=== PATIENT | female | born 1940 | race Two or more races ===

== ENCOUNTER 2021-09-02 18:10 | Inpatient (IN) | payer MEDICARE, MEDICAID ==
[~2021-09-02] VITALS: Ht 154.9 cm; Wt 56.1 kg
[2021-09-02] MEDS ORDERED: SODIUM CHLORIDE 0.9% 1,000 ML IV ONE (19:00)
[2021-09-02 20:24] LABS: Albumin 2.8 g/dL (3.4-5.0); Calcium 8.3 mg/dL (8.5-10.1); Potassium 3.5 mmol/L (3.5-5.1)
[2021-09-02 20:26] LABS: INR 1.09 (0.9-1.15); Partial Thromboplastin Time 32.7 sec (23.6-33.0)
[2021-09-02 20:28] LABS: BUN/Creatinine Ratio 12.7; Bilirubin, Total 0.5 mg/dL (0.2-1.0); Total Protein 7.2 g/dL (6.4-8.2)
[2021-09-02] MEDS ORDERED: MORPHINE SULFATE INJECTION 2 MG/ML SYRG IV ONE (20:30)
[2021-09-02] MEDS ORDERED: ONDANSETRON HCL 4 MG/2 ML VIAL IV ONE (21:45)
[2021-09-02] MEDS ORDERED: OMNIPAQUE ORAL SOLN 500ml 12mg/ml PO ONE (21:49)
[2021-09-02 22:19] LABS: Basophils # (auto) 0 10 ^3/uL (0-0.2); Basophils % (auto) 0.3 % (0.0-2.0); Eosinophils # (auto) 0 10 ^3/uL (0-0.8); Eosinophils % (auto) 0.1 % (0.0-7.0); Hematocrit 27.1 % (36.0-46.0); Hemoglobin 8.8 g/dL (12.2-16.2); Lymphocytes # (auto) 1.5 10 ^3/uL (0.4-5.4); Lymphocytes % (auto) 11.6 % (10.0-50.0); Mean Corpuscular Hemoglobin 27.2 pg (28.0-32.0); Mean Corpuscular Hgb Conc. 32.4 g/dL (32.0-36.0); Mean Corpuscular Volume 84.1 fL (80.0-100.0); Monocytes # (auto) 0.6 10 ^3/uL (0-1.3); Monocytes % (auto) 4.8 % (0.0-12.0); Neutrophils # (auto) 10.9 10 ^3/uL (1.6-8.6); Neutrophils % (auto) 83.2 % (37.0-80.0); Nucleated Red Blood Cells % 0.1 %; Red Blood Cells 3.22 10^6/uL (4.0-5.20); Red Cell Distribution Width 17.6 % (11.8-14.3); White Blood Cell 13.2 10^3/uL (4.4-10.8)
[2021-09-03] VITALS (7 sets, daily range): BP systolic 123–137; BP diastolic 44–80
[2021-09-03] MEDS ORDERED: METOCLOPRAMIDE HCL 5MG/ml INJ 2ml VIAL IV ONE (02:15)
[2021-09-03] MEDS ORDERED: ATROPINE SULF 1 MG/10ml SYR IV ONE (02:30)
[2021-09-03] MEDS ORDERED: ETOMIDATE (2MG/ML) 20ML VIAL IV ONE (02:40)
[2021-09-03] MEDS ORDERED: SUCCINYLCHOLINE CHLORIDE 20 MG/ML 10ML VIAL IV ONE (02:40)
[2021-09-03] MEDS ORDERED: PROPOFOL 100 ML IV ONE (02:41)
[2021-09-03] MEDS ORDERED: NITROGLYCERIN 0.4 MG SL TAB SL PRN (03:15)
[2021-09-03] MEDS ORDERED: MORPHINE SULFATE 4 MG/ML SYR/VIAL IV PRN (03:15)
[2021-09-03] MEDS ORDERED: MORPHINE SULFATE INJECTION 2 MG/ML SYRG IV PRN (03:15)
[2021-09-03] MEDS ORDERED: DEXTROSE (50%) 50ML SYRG IV PRN (03:15)
[2021-09-03] MEDS: cefTRIAXone 1GM/50ML D5W 50 ML IV SCH ×2 (04:07→07:55)
[2021-09-03 04:16] LABS: Urine Bacteria NONE SEEN /hpf (None Seen); Urine Blood 3+ /uL (Negative); Urine WBC 267 /hpf (0 - 5)
[2021-09-03 04:22] LABS: Urine Specific Gravity 1.032 (1.001-1.035)
[2021-09-03 04:24] LABS: Hematocrit 27.9 % (36.0-46.0); Hemoglobin 8.8 g/dL (12.2-16.2)
[2021-09-03] MEDS: ONDANSETRON HCL 4 MG/2 ML VIAL IV PRN (06:26)
[2021-09-03] MEDS: DOPamine 1600MCG/ML D5W 250 ML IV SCH ×2 (07:54→22:18)
[2021-09-03] MEDS: ACCU-CHEK COMFORT CURVE STRIP VI SCH ×5 (08:12→22:17)
[2021-09-03] MEDS: InsuLIN REG 1unit/0.01ml Soln (100units/ml) SC SCH ×3 (08:18→22:17)
[2021-09-03] MEDS: PANTOPRAZOLE 40 MG TAB PO SCH (13:58)
[2021-09-03] MEDS ORDERED: LIDOCAINE 2%HCL (LOCAL ANESTH.) INJ 20ML MDV ONE (14:45)
[2021-09-03] MEDS ORDERED: MIDAZOLAM HCL 2MG/2ML 2ml VIAL (1mg/ml) ONE (14:45)
[2021-09-03] MEDS ORDERED: fentaNYL CITRATE 100 MCG/2 ML VL ONE (14:45)
[2021-09-03] MEDS ORDERED: IODIXANOL 320MG/ML 100ML BTL IV ONE (14:45)
[2021-09-03] MEDS ORDERED: IPRAAER6 PO (14:55)
[2021-09-03] MEDS ORDERED: ATOR40TA52 PO (14:55)
[2021-09-03] MEDS ORDERED: LINA5TAB PO (14:55)
[2021-09-03] MEDS ORDERED: FAMO40TA7 PO (14:55)
[2021-09-03] MEDS ORDERED: ISOS1TAB28 PO (14:55)
[2021-09-03] MEDS ORDERED: METH-928 PO (14:58)
[2021-09-03] MEDS ORDERED: diphenhdrAMINE HCL 50 MG/1 ML VL ONE (15:12)
[2021-09-03 20:24] LABS: Hematocrit 26.5 % (36.0-46.0); Hemoglobin 8.7 g/dL (12.2-16.2)
[2021-09-04] VITALS (8 sets, daily range): BP systolic 93–119; BP diastolic 33–67
[2021-09-04 05:27] LABS: Albumin 2.4 g/dL (3.4-5.0); Calcium 8.1 mg/dL (8.5-10.1); Potassium 3.5 mmol/L (3.5-5.1)
[2021-09-04 05:28] LABS: Basophils # (auto) 0 10 ^3/uL (0-0.2); Basophils % (auto) 0.2 % (0.0-2.0); Eosinophils # (auto) 0 10 ^3/uL (0-0.8); Hematocrit 25.5 % (36.0-46.0); Hemoglobin 8.4 g/dL (12.2-16.2); Lymphocytes # (auto) 1.7 10 ^3/uL (0.4-5.4); Lymphocytes % (auto) 9.5 % (10.0-50.0); Mean Corpuscular Hemoglobin 27.8 pg (28.0-32.0); Mean Corpuscular Hgb Conc. 32.9 g/dL (32.0-36.0); Mean Corpuscular Volume 84.5 fL (80.0-100.0); Monocytes # (auto) 1.3 10 ^3/uL (0-1.3); Neutrophils # (auto) 14.9 10 ^3/uL (1.6-8.6); Neutrophils % (auto) 83.3 % (37.0-80.0); Red Blood Cells 3.02 10^6/uL (4.0-5.20); Red Cell Distribution Width 17.7 % (11.8-14.3); White Blood Cell 17.9 10^3/uL (4.4-10.8)
[2021-09-04 05:30] LABS: BUN/Creatinine Ratio 11.6; Bilirubin, Total 0.4 mg/dL (0.2-1.0); Total Protein 6.4 g/dL (6.4-8.2)
[2021-09-04] MEDS: ACCU-CHEK COMFORT CURVE STRIP VI SCH ×4 (06:48→22:06)
[2021-09-04] MEDS: InsuLIN REG 1unit/0.01ml Soln (100units/ml) SC SCH ×4 (06:53→22:13)
[2021-09-04] MEDS: cefTRIAXone 1GM/50ML D5W 50 ML IV SCH (09:35)
[2021-09-04] MEDS: ONDANSETRON HCL 4 MG/2 ML VIAL IV PRN (10:18)
[2021-09-04] MEDS: PANTOPRAZOLE 40 MG TAB PO SCH (10:21)
[2021-09-04] MEDS ORDERED: LORazepam 2MG/ML-1ML VIAL IV PRN (12:45)
[2021-09-04] MEDS ORDERED: LORazepam 2MG/ML-1ML VIAL ONE (12:47)
[2021-09-04] MEDS: AMPICILLIN & SULBACTAM SODIUM 3 GM in SODIUM CHL 0.9% 100 ML IV SCH (22:06)
[2021-09-05] MEDS: DOPamine 1600MCG/ML D5W 250 ML IV SCH (02:17)
[2021-09-05 06:55] LABS: Anion Gap 10 (5-15); Calcium 7.6 mg/dL (8.5-10.1); Carbon Dioxide 22 mmol/L (21-32); Chloride 107 mmol/L (98-107); Glucose 120 mg/dL (74-106); Potassium 3.6 mmol/L (3.5-5.1); Sodium 139 mmol/L (136-145)
[2021-09-05 06:58] LABS: Basophils # (auto) 0.1 10 ^3/uL (0-0.2); Basophils % (auto) 0.5 % (0.0-2.0); Eosinophils # (auto) 0 10 ^3/uL (0-0.8); Eosinophils % (auto) 0.3 % (0.0-7.0); Hematocrit 28.3 % (36.0-46.0); Hemoglobin 8.7 g/dL (12.2-16.2); Lymphocytes # (auto) 2.8 10 ^3/uL (0.4-5.4); Lymphocytes % (auto) 18.2 % (10.0-50.0); Mean Corpuscular Hemoglobin 26.1 pg (28.0-32.0); Mean Corpuscular Hgb Conc. 30.7 g/dL (32.0-36.0); Monocytes # (auto) 1.2 10 ^3/uL (0-1.3); Monocytes % (auto) 7.5 % (0.0-12.0); Neutrophils # (auto) 11.4 10 ^3/uL (1.6-8.6); Neutrophils % (auto) 73.5 % (37.0-80.0); Red Blood Cells 3.33 10^6/uL (4.0-5.20); White Blood Cell 15.5 10^3/uL (4.4-10.8)
[2021-09-05] MEDS: InsuLIN REG 1unit/0.01ml Soln (100units/ml) SC SCH ×4 (07:00→22:36)
[2021-09-05] MEDS: ACCU-CHEK COMFORT CURVE STRIP VI SCH ×4 (07:00→22:27)
[2021-09-05 07:01] LABS: BUN/Creatinine Ratio 10.8; Blood Urea Nitrogen 33 mg/dL (7-18); GFR African American 19 mL/min; GFR Non-African American 16 mL/min
[2021-09-05 09:00] VITALS: BP 119/51
[2021-09-05] MEDS: PANTOPRAZOLE 40 MG TAB PO SCH (10:59)
[2021-09-05] MEDS: cefTRIAXone 1GM/50ML D5W 50 ML IV SCH (11:00)
[2021-09-05] MEDS: SODIUM CHLORIDE 0.9% 1,000 ML IV SCH (11:18)
[2021-09-05] MEDS: AMPICILLIN & SULBACTAM SODIUM 3 GM in SODIUM CHL 0.9% 100 ML IV SCH ×2 (12:41→22:22)
[2021-09-05 13:00] VITALS: BP 94/35
[2021-09-05 14:54] LABS: INR 1.07 (0.9-1.15); Partial Thromboplastin Time 32.4 sec (23.6-33.0)
[2021-09-05 17:00] VITALS: BP 89/44
[2021-09-05 20:00] VITALS: BP 119/47
[2021-09-05 22:00] VITALS: BP 119/47
[2021-09-06] MEDS: DOPamine 1600MCG/ML D5W 250 ML IV SCH (01:48)
[2021-09-06 05:00] VITALS: BP 114/36
[2021-09-06] MEDS: SODIUM CHLORIDE 0.9% 1,000 ML IV SCH (05:44)
[2021-09-06] MEDS: ACCU-CHEK COMFORT CURVE STRIP VI SCH ×4 (06:08→22:14)
[2021-09-06] MEDS: InsuLIN REG 1unit/0.01ml Soln (100units/ml) SC SCH ×4 (06:08→22:35)
[2021-09-06 07:58] LABS: Basophils # (auto) 0 10 ^3/uL (0-0.2); Eosinophils # (auto) 0.1 10 ^3/uL (0-0.8); Hemoglobin 8.1 g/dL (12.2-16.2); Lymphocytes # (auto) 1.9 10 ^3/uL (0.4-5.4); Mean Corpuscular Volume 85.8 fL (80.0-100.0); Red Cell Distribution Width 17.5 % (11.8-14.3)
[2021-09-06 08:00] VITALS: BP 119/47
[2021-09-06 08:01] LABS: Basophils % (auto) 0.3 % (0.0-2.0); Eosinophils % (auto) 1.1 % (0.0-7.0); Hematocrit 23.5 % (36.0-46.0); Lymphocytes % (auto) 18.2 % (10.0-50.0); Mean Corpuscular Hemoglobin 29.6 pg (28.0-32.0); Mean Corpuscular Hgb Conc. 34.5 g/dL (32.0-36.0); Monocytes # (auto) 0.6 10 ^3/uL (0-1.3); Monocytes % (auto) 6.1 % (0.0-12.0); Neutrophils # (auto) 7.7 10 ^3/uL (1.6-8.6); Neutrophils % (auto) 74.3 % (37.0-80.0); Nucleated Red Blood Cells % 0.1 %; Red Blood Cells 2.74 10^6/uL (4.0-5.20); White Blood Cell 10.4 10^3/uL (4.4-10.8)
[2021-09-06 08:02] LABS: Potassium 3.6 mmol/L (3.5-5.1)
[2021-09-06 08:10] LABS: BUN/Creatinine Ratio 12.6; Calcium 7.7 mg/dL (8.5-10.1)
[2021-09-06 09:00] VITALS: BP 113/42
[2021-09-06] MEDS: PANTOPRAZOLE 40 MG TAB PO SCH (09:22)
[2021-09-06] MEDS: cefTRIAXone 1GM/50ML D5W 50 ML IV SCH (09:22)
[2021-09-06] MEDS: AMPICILLIN & SULBACTAM SODIUM 3 GM in SODIUM CHL 0.9% 100 ML IV SCH ×2 (10:24→22:14)
[2021-09-06 13:00] VITALS: BP 111/38
[2021-09-06 17:00] VITALS: BP 115/47
[2021-09-06 21:58] VITALS: BP 123/37
[2021-09-07] MEDS: DOPamine 1600MCG/ML D5W 250 ML IV SCH (01:19)
[2021-09-07] MEDS: SODIUM CHLORIDE 0.9% 1,000 ML IV SCH ×2 (03:40→09:39)
[2021-09-07 05:00] VITALS: BP 119/50
[2021-09-07] MEDS: ACCU-CHEK COMFORT CURVE STRIP VI SCH ×4 (06:25→21:51)
[2021-09-07] MEDS: InsuLIN REG 1unit/0.01ml Soln (100units/ml) SC SCH ×4 (06:26→22:06)
[2021-09-07 09:00] VITALS: BP 139/76
[2021-09-07] MEDS: PANTOPRAZOLE 40 MG TAB PO SCH (09:35)
[2021-09-07] MEDS: cefTRIAXone 1GM/50ML D5W 50 ML IV SCH (09:36)
[2021-09-07] MEDS: AMPICILLIN & SULBACTAM SODIUM 3 GM in SODIUM CHL 0.9% 100 ML IV SCH ×2 (12:04→21:50)
[2021-09-07 13:00] VITALS: BP 125/75
[2021-09-07 17:00] VITALS: BP 114/51
[2021-09-07 20:00] VITALS: BP 119/47
[2021-09-07 22:00] VITALS: BP 111/84
[2021-09-08] MEDS: DOPamine 1600MCG/ML D5W 250 ML IV SCH (00:50)
[2021-09-08 05:00] VITALS: BP 121/62
[2021-09-08] MEDS: SODIUM CHLORIDE 0.9% 1,000 ML IV SCH ×2 (05:53→19:00)
[2021-09-08] MEDS: ACCU-CHEK COMFORT CURVE STRIP VI SCH ×4 (06:28→22:30)
[2021-09-08] MEDS: InsuLIN REG 1unit/0.01ml Soln (100units/ml) SC SCH ×4 (06:29→22:30)
[2021-09-08 09:00] VITALS: BP 140/47
[2021-09-08] MEDS: PANTOPRAZOLE 40 MG TAB PO SCH (10:00)
[2021-09-08] MEDS: cefTRIAXone 1GM/50ML D5W 50 ML IV SCH (10:00)
[2021-09-08 11:18] LABS: Calcium 7.8 mg/dL (8.5-10.1); Potassium 4.5 mmol/L (3.5-5.1)
[2021-09-08 11:20] LABS: BUN/Creatinine Ratio 10.8
[2021-09-08 13:00] VITALS: BP 143/47
[2021-09-08 17:00] VITALS: BP 138/42
[2021-09-08 19:32] VITALS: BP 133/46
[2021-09-08 22:00] VITALS: BP 133/46
[2021-09-09] VITALS (10 sets, daily range): BP systolic 120–161; BP diastolic 38–74
[2021-09-09] MEDS: DOPamine 1600MCG/ML D5W 250 ML IV SCH (00:21)
[2021-09-09] MEDS: ACCU-CHEK COMFORT CURVE STRIP VI SCH ×4 (06:27→22:08)
[2021-09-09] MEDS: InsuLIN REG 1unit/0.01ml Soln (100units/ml) SC SCH ×4 (06:27→22:14)
[2021-09-09 06:40] LABS: Basophils # (auto) 0 10 ^3/uL (0-0.2); Basophils % (auto) 0.4 % (0.0-2.0); Eosinophils # (auto) 0.3 10 ^3/uL (0-0.8); Hematocrit 20.8 % (36.0-46.0); Lymphocytes # (auto) 1.7 10 ^3/uL (0.4-5.4)
[2021-09-09 06:45] LABS: Eosinophils % (auto) 3.1 % (0.0-7.0); Lymphocytes % (auto) 19.1 % (10.0-50.0); Mean Corpuscular Hemoglobin 28.2 pg (28.0-32.0); Mean Corpuscular Hgb Conc. 33.2 g/dL (32.0-36.0); Mean Corpuscular Volume 84.9 fL (80.0-100.0); Monocytes # (auto) 0.6 10 ^3/uL (0-1.3); Monocytes % (auto) 7.3 % (0.0-12.0); Neutrophils # (auto) 6.3 10 ^3/uL (1.6-8.6); Neutrophils % (auto) 70.1 % (37.0-80.0); Red Blood Cells 2.45 10^6/uL (4.0-5.20); Red Cell Distribution Width 17.5 % (11.8-14.3); White Blood Cell 8.9 10^3/uL (4.4-10.8)
[2021-09-09 06:48] LABS: BUN/Creatinine Ratio 10.1; Calcium 7.9 mg/dL (8.5-10.1); Potassium 4.2 mmol/L (3.5-5.1)
[2021-09-09 06:55] LABS: INR 1.09 (0.9-1.15)
[2021-09-09 07:46] LABS: Hemoglobin 6.9 g/dL (12.2-16.2)
[2021-09-09] MEDS: SODIUM CHLORIDE 0.9% 1,000 ML IV SCH ×2 (08:20→21:56)
[2021-09-09] MEDS: PANTOPRAZOLE 40 MG TAB PO SCH (10:00)
[2021-09-09] MEDS ORDERED: IODIXANOL 320MG/ML 100ML BTL IV ONE (12:24)
[2021-09-09] MEDS ORDERED: LIDOCAINE 2%HCL (LOCAL ANESTH.) INJ 20ML MDV ONE (12:24)
[2021-09-09] MEDS ORDERED: MIDAZOLAM HCL 2MG/2ML 2ml VIAL (1mg/ml) ONE (12:57)
[2021-09-09] MEDS ORDERED: fentaNYL CITRATE 100 MCG/2 ML VL ONE (12:57)
[2021-09-09] MEDS ORDERED: AMPICILLIN SOD 1 GM in SODIUM CHL 0.9% 50 ML IV SCH (14:00)
[2021-09-09] MEDS: AMPICILLIN SOD 1 GM in SODIUM CHL 0.9% 50 ML IV SCH (22:08)
[2021-09-10 05:00] VITALS: BP 147/57
[2021-09-10] MEDS: AMPICILLIN SOD 1 GM in SODIUM CHL 0.9% 50 ML IV SCH ×3 (05:39→21:51)
[2021-09-10 05:45] LABS: Basophils # (auto) 0 10 ^3/uL (0-0.2); Basophils % (auto) 0.4 % (0.0-2.0); Eosinophils # (auto) 0.2 10 ^3/uL (0-0.8); Eosinophils % (auto) 2.7 % (0.0-7.0); Hematocrit 27.9 % (36.0-46.0); Hemoglobin 8.8 g/dL (12.2-16.2); Lymphocytes # (auto) 1.9 10 ^3/uL (0.4-5.4); Lymphocytes % (auto) 20.7 % (10.0-50.0); Mean Corpuscular Hemoglobin 28.5 pg (28.0-32.0); Mean Corpuscular Hgb Conc. 31.6 g/dL (32.0-36.0); Mean Corpuscular Volume 90.1 fL (80.0-100.0); Monocytes # (auto) 0.7 10 ^3/uL (0-1.3); Monocytes % (auto) 7.5 % (0.0-12.0); Neutrophils # (auto) 6.2 10 ^3/uL (1.6-8.6); Neutrophils % (auto) 68.7 % (37.0-80.0); Nucleated Red Blood Cells % 0.1 %; Red Cell Distribution Width 17.2 % (11.8-14.3); White Blood Cell 9.1 10^3/uL (4.4-10.8)
[2021-09-10 06:06] LABS: Albumin 2.1 g/dL (3.4-5.0); BUN/Creatinine Ratio 10.3; Potassium 3.4 mmol/L (3.5-5.1)
[2021-09-10 06:08] LABS: Bilirubin, Total 0.3 mg/dL (0.2-1.0); Total Protein 5.7 g/dL (6.4-8.2)
[2021-09-10] MEDS: InsuLIN REG 1unit/0.01ml Soln (100units/ml) SC SCH ×4 (06:39→21:51)
[2021-09-10] MEDS: ACCU-CHEK COMFORT CURVE STRIP VI SCH ×4 (06:40→21:52)
[2021-09-10 09:00] VITALS: BP 155/60
[2021-09-10] MEDS: PANTOPRAZOLE 40 MG TAB PO SCH (10:28)
[2021-09-10] MEDS: SODIUM CHLORIDE 0.9% 1,000 ML IV SCH (11:10)
[2021-09-10 13:00] VITALS: BP 133/51
[2021-09-10 15:00] VITALS: BP 138/67
[2021-09-10 22:00] VITALS: BP 144/74
[2021-09-11 05:00] VITALS: BP 138/58
[2021-09-11] MEDS: AMPICILLIN SOD 1 GM in SODIUM CHL 0.9% 50 ML IV SCH (05:20)
[2021-09-11] MEDS: ACCU-CHEK COMFORT CURVE STRIP VI SCH ×2 (05:45→11:45)
[2021-09-11] MEDS: InsuLIN REG 1unit/0.01ml Soln (100units/ml) SC SCH ×2 (05:45→12:30)
[2021-09-11 06:57] LABS: Potassium 3.5 mmol/L (3.5-5.1)
[2021-09-11 07:03] LABS: BUN/Creatinine Ratio 10.8; Calcium 7.6 mg/dL (8.5-10.1)
[2021-09-11 09:00] VITALS: BP 159/68
[2021-09-11] MEDS ORDERED: IOHEXOL 300 MG/ML 100ML BOTTLE IJ ONE (10:05)
[2021-09-11] MEDS: SODIUM CHLORIDE 0.9% 1,000 ML IV SCH ×2 (11:38→12:10)
[2021-09-11] MEDS: PANTOPRAZOLE 40 MG TAB PO SCH (11:45)
[2021-09-11 12:47] VITALS: BP 156/70
== END 2021-09-11 14:00 | disposition home or self-care (01) | DRG 466 ==
LOC: ER 18:10 → TELE 09-03 03:17 → TELE-CENTR 09-03 14:56 → CENTRAL 09-10 14:30
PROVIDERS: ADMIT Nurse Practitioner; ATTEND Internal Medicine Nephrology
PROC: 0T25X0Z Change Drainage Device in Kidney, External Approach (ICD-10-PCS; principal; 2021-09-03)
PROC: BT12YZZ Fluoroscopy of Left Kidney using Other Contrast (ICD-10-PCS; 2021-09-03)
PROC: 30233N1 Transfusion of Nonautologous Red Blood Cells into Peripheral Vein, Percutaneous Approach (ICD-10-PCS; 2021-09-09)
DX: T83.012A Breakdown (mechanical) of nephrostomy catheter, initial encounter (principal); K66.1 Hemoperitoneum; N17.9 Acute kidney failure, unspecified; E43 Unspecified severe protein-calorie malnutrition; D62 Acute posthemorrhagic anemia; N13.6 Pyonephrosis; E11.22 Type 2 diabetes mellitus with diabetic chronic kidney disease; I48.91 Unspecified atrial fibrillation; I12.9 Hypertensive chronic kidney disease with stage 1 through stage 4 chronic kidney disease, or unspecified chronic kidney disease; K80.20 Calculus of gallbladder without cholecystitis without obstruction; R00.1 Bradycardia, unspecified; Z20.822 Contact with and (suspected) exposure to COVID-19; Y73.2 Prosthetic and other implants, materials and accessory gastroenterology and urology devices associated with adverse incidents; R31.0 Gross hematuria; N18.32 Chronic kidney disease, stage 3b; Y92.89 Other specified places as the place of occurrence of the external cause; Z68.22 Body mass index [BMI] 22.0-22.9, adult; Z95.0 Presence of cardiac pacemaker; Z86.19 Personal history of other infectious and parasitic diseases; Z79.84 Long term (current) use of oral hypoglycemic drugs
CPT/HCPCS: 36415; 50435; 71045; 74018; 74176; 74177; 74425; 76942; 80048; 80053; 81001; 82150; 82270; 82962; 83605; 83690; 84484; 85014; 85018; 85025; 85610; 85730; 86850; 86900; 86901; 86920; 87040; 87086; 87088; 87186; 87426; 93005; 93306; 96361; 96374; 96375; 97163; 99152; 99153; C1729; G0378; J0330; J0696; J1815; J2250; J2405; J2704; Q9967

== ENCOUNTER → 2021-09-18 | Outpatient (CLI) | payer MEDICARE, MEDICAID ==
[~2021-09-18] MED LIST: ATOR40TA52 PO; FAMO40TA7 PO; IPRAAER6 PO; ISOS1TAB28 PO; LINA5TAB PO; METH-928 PO
[2021-09-18 11:09] LABS: Albumin 2.7 g/dL (3.4-5.0); Calcium 8.4 mg/dL (8.5-10.1); Potassium 4.1 mmol/L (3.5-5.1)
[2021-09-18 11:12] LABS: Bilirubin, Total 0.4 mg/dL (0.2-1.0); Total Protein 6.8 g/dL (6.4-8.2)
[2021-09-18 11:23] LABS: Urine Bacteria MOD /hpf (None Seen); Urine Blood 2+ /uL (Negative); Urine Specific Gravity 1.011 (1.001-1.035); Urine WBC 401 /hpf (0 - 5); Urine WBC Clumps PRESENT /hpf (None Seen)
[2021-09-18 14:35] LABS: Basophils # (auto) 0.2 10 ^3/uL (0-0.2); Basophils % (auto) 2.1 % (0.0-2.0); Eosinophils # (auto) 0.2 10 ^3/uL (0-0.8); Eosinophils % (auto) 1.8 % (0.0-7.0); Hemoglobin 9.6 g/dL (12.2-16.2); Lymphocytes # (auto) 2.1 10 ^3/uL (0.4-5.4); Lymphocytes % (auto) 22.4 % (10.0-50.0); Mean Corpuscular Hemoglobin 27.9 pg (28.0-32.0); Mean Corpuscular Hgb Conc. 32.2 g/dL (32.0-36.0); Mean Corpuscular Volume 86.6 fL (80.0-100.0); Monocytes # (auto) 0.4 10 ^3/uL (0-1.3); Monocytes % (auto) 4.8 % (0.0-12.0); Neutrophils # (auto) 6.4 10 ^3/uL (1.6-8.6); Neutrophils % (auto) 68.9 % (37.0-80.0); Nucleated Red Blood Cells % 0.1 %; Red Blood Cells 3.46 10^6/uL (4.0-5.20); Red Cell Distribution Width 17.1 % (11.8-14.3); White Blood Cell 9.4 10^3/uL (4.4-10.8)
== END | disposition home or self-care (01) ==
LOC: LAB 10:09
PROVIDERS: ATTEND Internal Medicine
DX: E11.9 Type 2 diabetes mellitus without complications (principal); D64.9 Anemia, unspecified
CPT/HCPCS: 36415; 80053; 81001; 83036; 85025

== ENCOUNTER 2021-09-23 18:00 | Inpatient (IN) | payer MEDICARE, MEDICAID ==
[~2021-09-23] VITALS: Ht 160 cm; Wt 52.6 kg
[2021-09-23 19:58] LABS: Basophils # (auto) 0.1 10 ^3/uL (0-0.2); Basophils % (auto) 0.6 % (0.0-2.0); Eosinophils # (auto) 0 10 ^3/uL (0-0.8); Hematocrit 30.4 % (36.0-46.0); Lymphocytes % (auto) 7.5 % (10.0-50.0); Mean Corpuscular Hemoglobin 27.9 pg (28.0-32.0); Mean Corpuscular Hgb Conc. 32.8 g/dL (32.0-36.0); Mean Corpuscular Volume 85.1 fL (80.0-100.0); Monocytes # (auto) 0.5 10 ^3/uL (0-1.3); Neutrophils # (auto) 11.5 10 ^3/uL (1.6-8.6); Neutrophils % (auto) 87.9 % (37.0-80.0); Red Blood Cells 3.57 10^6/uL (4.0-5.20); Red Cell Distribution Width 16.7 % (11.8-14.3); White Blood Cell 13.1 10^3/uL (4.4-10.8)
[2021-09-23] MEDS ORDERED: SODIUM CHLORIDE 0.9% 500 ML IV ONE (20:00)
[2021-09-23] MEDS ORDERED: MORPHINE SULFATE 4 MG/ML SYR/VIAL IV ONE (20:00)
[2021-09-23] MEDS ORDERED: ONDANSETRON HCL 4 MG/2 ML VIAL IV ONE (20:00)
[2021-09-23 20:15] LABS: Albumin 3.2 g/dL (3.4-5.0); BUN/Creatinine Ratio 7.8; Calcium 8.8 mg/dL (8.5-10.1); Potassium 3.3 mmol/L (3.5-5.1)
[2021-09-23 20:18] LABS: Bilirubin, Total 0.5 mg/dL (0.2-1.0); Total Protein 7.5 g/dL (6.4-8.2)
[2021-09-23] MEDS ORDERED: PIPERACILLIN-TAZOB 3.375GM 100 ML IV ONE (21:00)
[2021-09-23] MEDS ORDERED: POTASSIUM CHL 20 Meq TABLET PO ONE (21:15)
[2021-09-23] MEDS ORDERED: DEXTROSE (50%) 50ML SYRG IV PRN (21:15)
[2021-09-23] MEDS ORDERED: ONDANSETRON HCL 4 MG/2 ML VIAL IV PRN (21:15)
[2021-09-23] MEDS ORDERED: MORPHINE SULFATE 4 MG/ML SYR/VIAL IV PRN (21:15)
[2021-09-23] MEDS ORDERED: HYDROcodone-ACET 5/325MG TAB PO PRN (21:15)
[2021-09-23] MEDS ORDERED: ACETAMINOPHEN 325 MG TAB PO PRN (21:15)
[2021-09-23] MEDS: ACCU-CHEK COMFORT CURVE STRIP VI SCH (22:22)
[2021-09-23] MEDS: DONEPEZIL HYDROCHLORIDE 5 MG TAB PO SCH (22:25)
[2021-09-23] MEDS: ATORVASTATIN 20 MG TAB PO SCH (22:25)
[2021-09-23] MEDS: InsuLIN REG 1unit/0.01ml Soln (100units/ml) SC SCH (22:26)
[2021-09-24 00:37] VITALS: BP 155/65
[2021-09-24 05:00] VITALS: BP 129/53
[2021-09-24] MEDS: InsuLIN REG 1unit/0.01ml Soln (100units/ml) SC SCH ×4 (06:07→22:17)
[2021-09-24] MEDS: ACCU-CHEK COMFORT CURVE STRIP VI SCH ×4 (06:07→22:04)
[2021-09-24 06:31] LABS: Basophils # (auto) 0 10 ^3/uL (0-0.2); Basophils % (auto) 0.3 % (0.0-2.0); Eosinophils # (auto) 0 10 ^3/uL (0-0.8); Hematocrit 25.6 % (36.0-46.0); Hemoglobin 8.6 g/dL (12.2-16.2); Lymphocytes # (auto) 1.2 10 ^3/uL (0.4-5.4); Lymphocytes % (auto) 11.7 % (10.0-50.0); Mean Corpuscular Hemoglobin 28.6 pg (28.0-32.0); Mean Corpuscular Hgb Conc. 33.7 g/dL (32.0-36.0); Monocytes # (auto) 0.8 10 ^3/uL (0-1.3); Monocytes % (auto) 8.1 % (0.0-12.0); Neutrophils # (auto) 8.1 10 ^3/uL (1.6-8.6); Neutrophils % (auto) 79.9 % (37.0-80.0); Red Blood Cells 3.02 10^6/uL (4.0-5.20); Red Cell Distribution Width 16.3 % (11.8-14.3); White Blood Cell 10.2 10^3/uL (4.4-10.8)
[2021-09-24 06:44] LABS: BUN/Creatinine Ratio 8.6; Calcium 7.7 mg/dL (8.5-10.1); Potassium 3.7 mmol/L (3.5-5.1)
[2021-09-24 08:55] VITALS: BP 143/50
[2021-09-24] MEDS: cefTRIAXone 1GM/50ML D5W 50 ML IV SCH (09:57)
[2021-09-24] MEDS: PANTOPRAZOLE 40 MG TAB PO SCH (09:57)
[2021-09-24] MEDS: ISOSORBIDE MONONITRATE ER 60 MG TAB PO SCH (09:58)
[2021-09-24 13:00] VITALS: BP 113/56
[2021-09-24] MEDS ORDERED: fentaNYL CITRATE 100 MCG/2 ML VL ONE (13:32)
[2021-09-24] MEDS ORDERED: LIDOCAINE 2%HCL (LOCAL ANESTH.) INJ 10ml MDV ONE (13:33)
[2021-09-24] MEDS ORDERED: MIDAZOLAM HCL 2MG/2ML 2ml VIAL (1mg/ml) ONE (13:33)
[2021-09-24] MEDS ORDERED: IODIXANOL 320MG/ML 100ML BTL IV ONE (13:36)
[2021-09-24 13:44] LABS: INR 1.17 (0.9-1.15); Partial Thromboplastin Time 37.5 sec (23.6-33.0)
[2021-09-24 16:52] VITALS: BP 137/67
[2021-09-24 21:50] VITALS: BP 114/60
[2021-09-24] MEDS: ATORVASTATIN 20 MG TAB PO SCH (22:04)
[2021-09-24] MEDS: DONEPEZIL HYDROCHLORIDE 5 MG TAB PO SCH (22:04)
[2021-09-24 23:53] LABS: Urine Bacteria FEW /hpf (None Seen); Urine Blood 2+ /uL (Negative); Urine Specific Gravity 1.015 (1.001-1.035); Urine WBC 2772 /hpf (0 - 5); Urine WBC Clumps PRESENT /hpf (None Seen)
[2021-09-25 05:00] VITALS: BP 110/58
[2021-09-25] MEDS: ACCU-CHEK COMFORT CURVE STRIP VI SCH ×4 (06:29→20:43)
[2021-09-25] MEDS: InsuLIN REG 1unit/0.01ml Soln (100units/ml) SC SCH ×4 (06:29→20:43)
[2021-09-25 09:00] VITALS: BP 117/50
[2021-09-25] MEDS: cefTRIAXone 1GM/50ML D5W 50 ML IV SCH (09:57)
[2021-09-25] MEDS: ISOSORBIDE MONONITRATE ER 60 MG TAB PO SCH (09:58)
[2021-09-25] MEDS: PANTOPRAZOLE 40 MG TAB PO SCH (09:58)
[2021-09-25 13:00] VITALS: BP 104/46
[2021-09-25 17:00] VITALS: BP 94/41
[2021-09-25] MEDS: DONEPEZIL HYDROCHLORIDE 5 MG TAB PO SCH (20:43)
[2021-09-25] MEDS: ATORVASTATIN 20 MG TAB PO SCH (20:43)
[2021-09-25 22:00] VITALS: BP 122/42
[2021-09-26 05:00] VITALS: BP 131/52
[2021-09-26] MEDS: ACCU-CHEK COMFORT CURVE STRIP VI SCH ×4 (06:36→21:51)
[2021-09-26] MEDS: InsuLIN REG 1unit/0.01ml Soln (100units/ml) SC SCH ×4 (06:40→21:51)
[2021-09-26 08:10] VITALS: BP 131/90
[2021-09-26] MEDS: cefTRIAXone 1GM/50ML D5W 50 ML IV SCH (09:18)
[2021-09-26] MEDS: ISOSORBIDE MONONITRATE ER 60 MG TAB PO SCH (10:01)
[2021-09-26] MEDS: PANTOPRAZOLE 40 MG TAB PO SCH (10:02)
[2021-09-26] MEDS ORDERED: guaiFENesin-DM 100/10mg/5ml SYR PO PRN (11:30)
[2021-09-26] MEDS ORDERED: ALBUTEROL SULF HFA 90MCG INH 200DOSE IN PRN (11:30)
[2021-09-26 11:40] VITALS: BP 130/45
[2021-09-26] MEDS ORDERED: ALBUTEROL SULF 2.5 MG/0.5ML(0.5%) NEB SOLN NEB PRN (12:00)
[2021-09-26 16:00] VITALS: BP 136/65
[2021-09-26 16:06] LABS: Eosinophils # (auto) 0.1 10 ^3/uL (0-0.8); Hemoglobin 8.3 g/dL (12.2-16.2); Monocytes # (auto) 0.6 10 ^3/uL (0-1.3); Red Cell Distribution Width 16.3 % (11.8-14.3); White Blood Cell 7.1 10^3/uL (4.4-10.8)
[2021-09-26 16:08] LABS: Basophils # (auto) 0.1 10 ^3/uL (0-0.2); Basophils % (auto) 0.8 % (0.0-2.0); Eosinophils % (auto) 1.2 % (0.0-7.0); Hematocrit 24.8 % (36.0-46.0); Lymphocytes # (auto) 1.8 10 ^3/uL (0.4-5.4); Lymphocytes % (auto) 25.3 % (10.0-50.0); Mean Corpuscular Hemoglobin 28.2 pg (28.0-32.0); Mean Corpuscular Hgb Conc. 33.5 g/dL (32.0-36.0); Mean Corpuscular Volume 84.3 fL (80.0-100.0); Monocytes % (auto) 9.1 % (0.0-12.0); Neutrophils # (auto) 4.5 10 ^3/uL (1.6-8.6); Neutrophils % (auto) 63.6 % (37.0-80.0); Red Blood Cells 2.95 10^6/uL (4.0-5.20)
[2021-09-26 16:21] LABS: Albumin 2.2 g/dL (3.4-5.0); Calcium 7.9 mg/dL (8.5-10.1); Potassium 4.2 mmol/L (3.5-5.1)
[2021-09-26 16:25] VITALS: BP 131/90
[2021-09-26 16:26] LABS: Bilirubin, Total 0.1 mg/dL (0.2-1.0); Total Protein 5.9 g/dL (6.4-8.2)
[2021-09-26] MEDS: DONEPEZIL HYDROCHLORIDE 5 MG TAB PO SCH (21:50)
[2021-09-26] MEDS: ATORVASTATIN 20 MG TAB PO SCH (21:50)
[2021-09-26] MEDS: FAMOTIDINE 20 MG TAB PO SCH (21:55)
[2021-09-26] MEDS ORDERED: METHENAMINE HIPPURATE PO SCH (22:00)
[2021-09-26] MEDS ORDERED: AZTREONAM 1GM INJ 1 GM in D5W 5% 50 ML IV SCH (22:00)
[2021-09-26 22:17] VITALS: BP 131/57
[2021-09-27 05:00] VITALS: BP 142/63
[2021-09-27 05:46] LABS: Basophils # (auto) 0 10 ^3/uL (0-0.2); Basophils % (auto) 0.5 % (0.0-2.0); Eosinophils # (auto) 0.1 10 ^3/uL (0-0.8); Eosinophils % (auto) 2.1 % (0.0-7.0); Hematocrit 26.5 % (36.0-46.0); Hemoglobin 8.7 g/dL (12.2-16.2); Lymphocytes # (auto) 1.7 10 ^3/uL (0.4-5.4); Lymphocytes % (auto) 27.5 % (10.0-50.0); Mean Corpuscular Hemoglobin 27.7 pg (28.0-32.0); Mean Corpuscular Volume 84.1 fL (80.0-100.0); Monocytes # (auto) 0.6 10 ^3/uL (0-1.3); Monocytes % (auto) 10.1 % (0.0-12.0); Neutrophils # (auto) 3.8 10 ^3/uL (1.6-8.6); Neutrophils % (auto) 59.8 % (37.0-80.0); Red Blood Cells 3.15 10^6/uL (4.0-5.20); Red Cell Distribution Width 16.2 % (11.8-14.3); White Blood Cell 6.4 10^3/uL (4.4-10.8)
[2021-09-27 06:04] LABS: Albumin 2.3 g/dL (3.4-5.0); Magnesium 1.7 mg/dL (1.6-2.6); Potassium 4.4 mmol/L (3.5-5.1)
[2021-09-27 06:08] LABS: BUN/Creatinine Ratio 11.6; Bilirubin, Total 0.2 mg/dL (0.2-1.0); Phosphorus 2.9 mg/dL (2.5-4.90); Total Protein 6.1 g/dL (6.4-8.2)
[2021-09-27] MEDS: ACCU-CHEK COMFORT CURVE STRIP VI SCH ×4 (06:16→21:50)
[2021-09-27] MEDS: InsuLIN REG 1unit/0.01ml Soln (100units/ml) SC SCH ×4 (06:16→21:47)
[2021-09-27 09:00] VITALS: BP 142/54
[2021-09-27] MEDS: LACTATED RINGER'S 1,000 ML IV SCH ×2 (09:32→22:02)
[2021-09-27] MEDS: ISOSORBIDE MONONITRATE ER 60 MG TAB PO SCH (09:32)
[2021-09-27] MEDS ORDERED: [UNRECOGNIZED DRUG - OTHER] PO SCH (10:00)
[2021-09-27] MEDS ORDERED: levoFLOXacin 500 MG TAB PO ONE (10:00)
[2021-09-27] MEDS ORDERED: PATIENTS OWN MEDICATION (Isosorbide Mononitrate (Isosorbide Mononitrate Er) 1 TAB) PO SCH (10:00)
[2021-09-27 13:00] VITALS: BP_SYST 125; BP_SYST 152; BP_DIAS 53; BP_DIAS 73
[2021-09-27 17:00] VITALS: BP 142/61
[2021-09-27] MEDS: ATORVASTATIN 20 MG TAB PO SCH (21:49)
[2021-09-27] MEDS: DONEPEZIL HYDROCHLORIDE 5 MG TAB PO SCH (21:49)
[2021-09-27 22:00] VITALS: BP 153/47
[2021-09-28 05:00] VITALS: BP 161/53
[2021-09-28 05:52] LABS: Basophils # (auto) 0 10 ^3/uL (0-0.2); Basophils % (auto) 0.4 % (0.0-2.0); Eosinophils # (auto) 0.2 10 ^3/uL (0-0.8); Eosinophils % (auto) 2.3 % (0.0-7.0); Hematocrit 28.3 % (36.0-46.0); Hemoglobin 9.5 g/dL (12.2-16.2); Lymphocytes # (auto) 1.9 10 ^3/uL (0.4-5.4); Mean Corpuscular Hemoglobin 28.3 pg (28.0-32.0); Mean Corpuscular Hgb Conc. 33.7 g/dL (32.0-36.0); Monocytes # (auto) 0.7 10 ^3/uL (0-1.3); Monocytes % (auto) 10.7 % (0.0-12.0); Neutrophils # (auto) 3.9 10 ^3/uL (1.6-8.6); Neutrophils % (auto) 58.6 % (37.0-80.0); Nucleated Red Blood Cells % 0.1 %; Red Blood Cells 3.37 10^6/uL (4.0-5.20); Red Cell Distribution Width 16.4 % (11.8-14.3); White Blood Cell 6.7 10^3/uL (4.4-10.8)
[2021-09-28] MEDS: InsuLIN REG 1unit/0.01ml Soln (100units/ml) SC SCH ×2 (06:00→11:50)
[2021-09-28] MEDS: ACCU-CHEK COMFORT CURVE STRIP VI SCH ×2 (06:01→11:41)
[2021-09-28 06:11] LABS: Albumin 2.3 g/dL (3.4-5.0); Calcium 8.2 mg/dL (8.5-10.1); Potassium 4.1 mmol/L (3.5-5.1)
[2021-09-28 06:17] LABS: Bilirubin, Total 0.2 mg/dL (0.2-1.0)
[2021-09-28 08:00] VITALS: BP_SYST 142; BP_SYST 144; BP_DIAS 46; BP_DIAS 54
[2021-09-28] MEDS: ISOSORBIDE MONONITRATE ER 60 MG TAB PO SCH (09:21)
[2021-09-28] MEDS: FAMOTIDINE 20 MG TAB PO SCH (09:21)
[2021-09-28] MEDS ORDERED: levoFLOXacin 250 MG TAB PO SCH (10:00)
[2021-09-28] MEDS ORDERED: LEVO250T69 PO (10:23)
[2021-09-28 12:00] VITALS: BP 139/47
[2021-09-28 13:13] VITALS: BP 139/47
== END 2021-09-28 15:07 | disposition home health service (06) | DRG 466 ==
LOC: ER 18:02 → OVERFLOW 21:02 → EAST 23:05
PROVIDERS: ADMIT Nurse Practitioner; ATTEND Hospitalist
PROC: 0T25X0Z Change Drainage Device in Kidney, External Approach (ICD-10-PCS; principal; 2021-09-24)
DX: T83.012A Breakdown (mechanical) of nephrostomy catheter, initial encounter (principal); N17.9 Acute kidney failure, unspecified; N13.6 Pyonephrosis; E11.22 Type 2 diabetes mellitus with diabetic chronic kidney disease; E78.5 Hyperlipidemia, unspecified; D72.829 Elevated white blood cell count, unspecified; E87.5 Hyperkalemia; N18.32 Chronic kidney disease, stage 3b; I12.9 Hypertensive chronic kidney disease with stage 1 through stage 4 chronic kidney disease, or unspecified chronic kidney disease; Z20.822 Contact with and (suspected) exposure to COVID-19; Y73.2 Prosthetic and other implants, materials and accessory gastroenterology and urology devices associated with adverse incidents; R31.9 Hematuria, unspecified; Z16.19 Resistance to other specified beta lactam antibiotics; I25.10 Atherosclerotic heart disease of native coronary artery without angina pectoris; R00.1 Bradycardia, unspecified; Z68.21 Body mass index [BMI] 21.0-21.9, adult; Z79.84 Long term (current) use of oral hypoglycemic drugs; Z87.442 Personal history of urinary calculi; Z95.1 Presence of aortocoronary bypass graft; Z86.19 Personal history of other infectious and parasitic diseases; Z91.013 Allergy to seafood; Y92.89 Other specified places as the place of occurrence of the external cause
CPT/HCPCS: 36415; 50435; 74176; 75984; 80048; 80053; 81001; 82962; 83605; 83735; 84100; 84484; 85025; 85610; 85730; 87081; 87086; 87088; 87186; 93005; 96361; 96365; 96375; 97163; 99152; 99153; C2625; G0378; J0696; J1815; J2001; J2250; J2405; J2543; J7060; Q9967

== ENCOUNTER 2021-11-09 09:03 | Inpatient (IN) | payer MEDICARE, MEDICAID ==
[~2021-11-09] VITALS: Ht 154.9 cm; Wt 55.0 kg
[~2021-11-09 09:03] MED LIST changes: +LEVO250T69 PO
[2021-11-09] MEDS ORDERED: cefTRIAXone 1GM/50ML D5W 50 ML IV ONE (13:45)
[2021-11-09 14:17] LABS: Basophils # (auto) 0 10 ^3/uL (0-0.2); Basophils % (auto) 0.5 % (0.0-2.0); Eosinophils # (auto) 0.1 10 ^3/uL (0-0.8); Eosinophils % (auto) 1.2 % (0.0-7.0); Hematocrit 35.7 % (36.0-46.0); Hemoglobin 11.6 g/dL (12.2-16.2); Lymphocytes # (auto) 2.2 10 ^3/uL (0.4-5.4); Lymphocytes % (auto) 26.1 % (10.0-50.0); Mean Corpuscular Hgb Conc. 32.6 g/dL (32.0-36.0); Mean Corpuscular Volume 82.8 fL (80.0-100.0); Monocytes # (auto) 0.5 10 ^3/uL (0-1.3); Monocytes % (auto) 5.8 % (0.0-12.0); Neutrophils # (auto) 5.6 10 ^3/uL (1.6-8.6); Neutrophils % (auto) 66.4 % (37.0-80.0); Nucleated Red Blood Cells % 0.1 %; Red Blood Cells 4.31 10^6/uL (4.0-5.20); Red Cell Distribution Width 15.3 % (11.8-14.3); White Blood Cell 8.5 10^3/uL (4.4-10.8)
[2021-11-09 14:30] LABS: Albumin 3.1 g/dL (3.4-5.0); Calcium 9.3 mg/dL (8.5-10.1); Potassium 5.5 mmol/L (3.5-5.1)
[2021-11-09 14:32] LABS: BUN/Creatinine Ratio 16.8
[2021-11-09 14:35] LABS: Bilirubin, Total 0.2 mg/dL (0.2-1.0); Phosphorus 3.8 mg/dL (2.5-4.90)
[2021-11-09 21:25] LABS: Urine Bacteria NONE SEEN /hpf (None Seen); Urine Blood 1+ /uL (Negative); Urine Budding Yeast MODERATE /hpf (None Seen); Urine Specific Gravity 1.011 (1.001-1.035); Urine WBC 318 /hpf (0 - 5); Urine WBC Clumps PRESENT /hpf (None Seen)
[2021-11-09] MEDS ORDERED: SODIUM ZIRCONIUM CYCL 10 GM PAK PO ONE (22:30)
[2021-11-09] MEDS ORDERED: MORPHINE SULFATE INJECTION 2 MG/ML SYRG IV PRN (22:30)
[2021-11-09] MEDS ORDERED: TEMAZEPAM 15 MG CAP PO PRN (22:30)
[2021-11-09] MEDS ORDERED: ACETAMINOPHEN 325 MG TAB PO PRN (22:30)
[2021-11-09] MEDS ORDERED: NITROGLYCERIN 0.4 MG SL TAB SL PRN (22:30)
[2021-11-09] MEDS ORDERED: ONDANSETRON HCL 4 MG/2 ML VIAL IV PRN (22:30)
[2021-11-09] MEDS ORDERED: HYDROcodone-ACET 5/325MG TAB PO PRN (22:30)
[2021-11-09 23:46] LABS: INR 1.1 (0.9-1.15); Partial Thromboplastin Time 37.3 sec (23.6-33.0)
[2021-11-10 05:43] LABS: Basophils # (auto) 0 10 ^3/uL (0-0.2); Basophils % (auto) 0.3 % (0.0-2.0); Eosinophils # (auto) 0.1 10 ^3/uL (0-0.8); Eosinophils % (auto) 1.3 % (0.0-7.0); Hematocrit 34.1 % (36.0-46.0); Hemoglobin 11.4 g/dL (12.2-16.2); Lymphocytes # (auto) 1.7 10 ^3/uL (0.4-5.4); Lymphocytes % (auto) 23.7 % (10.0-50.0); Mean Corpuscular Hemoglobin 27.3 pg (28.0-32.0); Mean Corpuscular Hgb Conc. 33.4 g/dL (32.0-36.0); Mean Corpuscular Volume 81.9 fL (80.0-100.0); Monocytes # (auto) 0.5 10 ^3/uL (0-1.3); Neutrophils % (auto) 67.7 % (37.0-80.0); Red Blood Cells 4.16 10^6/uL (4.0-5.20); White Blood Cell 7.3 10^3/uL (4.4-10.8)
[2021-11-10 06:34] LABS: Albumin 3.1 g/dL (3.4-5.0); BUN/Creatinine Ratio 19.2; Bilirubin, Total 0.2 mg/dL (0.2-1.0); Calcium 9.3 mg/dL (8.5-10.1); Total Protein 7.7 g/dL (6.4-8.2)
[2021-11-10 08:55] VITALS: BP 143/46
[2021-11-10 09:20] VITALS: BP 143/46
[2021-11-10] MEDS ORDERED: LOSARTAN POTASSIUM 25 MG TAB PO SCH (10:00)
[2021-11-10] MEDS: SODIUM BICARBONATE 650 MG TAB PO SCH ×2 (10:38→22:00)
[2021-11-10] MEDS: cefTRIAXone 1GM/50ML D5W 50 ML IV SCH (10:38)
[2021-11-10] MEDS: ISOSORBIDE MONONITRATE ER 60 MG TAB PO SCH (10:38)
[2021-11-10] MEDS ORDERED: DEXTROSE (50%) 50ML SYRG IV PRN (11:45)
[2021-11-10] MEDS: SOD CHL 0.45% 1,000 ML IV SCH (12:09)
[2021-11-10] MEDS: ACCU-CHEK COMFORT CURVE STRIP VI SCH ×2 (12:09→18:31)
[2021-11-10] MEDS: InsuLIN REG 1unit/0.01ml Soln (100units/ml) SC SCH ×2 (12:14→18:00)
[2021-11-10 12:41] VITALS: BP 117/41
[2021-11-10 17:00] VITALS: BP 111/39
[2021-11-10 22:00] VITALS: BP 96/44
[2021-11-10] MEDS ORDERED: ATORVASTATIN 20 MG TAB PO SCH (22:00)
[2021-11-10] MEDS ORDERED: DONEPEZIL HYDROCHLORIDE 5 MG TAB PO SCH (22:00)
[2021-11-11 05:00] VITALS: BP 135/51
[2021-11-11] MEDS: ACCU-CHEK COMFORT CURVE STRIP VI SCH ×3 (06:00→13:44)
[2021-11-11] MEDS: InsuLIN REG 1unit/0.01ml Soln (100units/ml) SC SCH ×3 (06:00→12:00)
[2021-11-11 06:28] LABS: Basophils # (auto) 0 10 ^3/uL (0-0.2); Basophils % (auto) 0.4 % (0.0-2.0); Eosinophils # (auto) 0.1 10 ^3/uL (0-0.8); Eosinophils % (auto) 1.9 % (0.0-7.0); Hematocrit 32.9 % (36.0-46.0); Hemoglobin 10.3 g/dL (12.2-16.2); Lymphocytes # (auto) 2.3 10 ^3/uL (0.4-5.4); Lymphocytes % (auto) 30.1 % (10.0-50.0); Mean Corpuscular Hemoglobin 27.8 pg (28.0-32.0); Mean Corpuscular Hgb Conc. 31.3 g/dL (32.0-36.0); Mean Corpuscular Volume 88.9 fL (80.0-100.0); Monocytes # (auto) 0.7 10 ^3/uL (0-1.3); Monocytes % (auto) 9.1 % (0.0-12.0); Neutrophils # (auto) 4.4 10 ^3/uL (1.6-8.6); Neutrophils % (auto) 58.5 % (37.0-80.0); Nucleated Red Blood Cells % 0.1 %; Red Cell Distribution Width 16.7 % (11.8-14.3); White Blood Cell 7.6 10^3/uL (4.4-10.8)
[2021-11-11 06:37] LABS: Anion Gap 11 (5-15); Carbon Dioxide 12 mmol/L (21-32); Chloride 116 mmol/L (98-107); Sodium 139 mmol/L (136-145)
[2021-11-11 06:40] LABS: BUN/Creatinine Ratio 17.8; Blood Urea Nitrogen 45 mg/dL (7-18); Calcium 8.4 mg/dL (8.5-10.1); GFR African American 23 mL/min; GFR Non-African American 19 mL/min; Glucose 112 mg/dL (74-106)
[2021-11-11] MEDS: SOD CHL 0.45% 1,000 ML IV SCH (07:45)
[2021-11-11 09:00] VITALS: BP 148/75
[2021-11-11] MEDS ORDERED: LEVO500T31 PO (09:55)
[2021-11-11] MEDS: cefTRIAXone 1GM/50ML D5W 50 ML IV SCH (09:59)
[2021-11-11] MEDS: SODIUM BICARBONATE 650 MG TAB PO SCH (10:00)
[2021-11-11] MEDS: ISOSORBIDE MONONITRATE ER 60 MG TAB PO SCH (10:00)
[2021-11-11 12:05] VITALS: BP 138/39
== END 2021-11-11 14:35 | disposition home or self-care (01) | DRG 466 ==
LOC: ER 09:03 → OVERFLOW 22:16 → CENTRAL 11-10 08:34
PROVIDERS: ADMIT Nurse Practitioner; ATTEND Internal Medicine
DX: T83.022A Displacement of nephrostomy catheter, initial encounter (principal); E44.0 Moderate protein-calorie malnutrition; E11.22 Type 2 diabetes mellitus with diabetic chronic kidney disease; F03.90 Unspecified dementia, unspecified severity, without behavioral disturbance, psychotic disturbance, mood disturbance, and anxiety; E87.5 Hyperkalemia; I12.9 Hypertensive chronic kidney disease with stage 1 through stage 4 chronic kidney disease, or unspecified chronic kidney disease; E78.5 Hyperlipidemia, unspecified; N18.32 Chronic kidney disease, stage 3b; Z20.822 Contact with and (suspected) exposure to COVID-19; N39.0 Urinary tract infection, site not specified; I25.10 Atherosclerotic heart disease of native coronary artery without angina pectoris; Y73.2 Prosthetic and other implants, materials and accessory gastroenterology and urology devices associated with adverse incidents; Z87.442 Personal history of urinary calculi; Z95.1 Presence of aortocoronary bypass graft; Z93.6 Other artificial openings of urinary tract status; Y92.89 Other specified places as the place of occurrence of the external cause; Z68.21 Body mass index [BMI] 21.0-21.9, adult
CPT/HCPCS: 36415; 74176; 80048; 80053; 81001; 82962; 83735; 84100; 84550; 85025; 85610; 85730; 87086; 96365; 97163; G0378; J0696; J1815

== ENCOUNTER → 2022-01-28 | Outpatient (CLI) | payer MEDICARE, MEDICAID ==
[~2022-01-28] MED LIST changes: +LEVO500T31 PO
[2022-01-30 10:28] LABS: Basophils # (auto) 0 10 ^3/uL (0-0.2); Basophils % (auto) 0.5 % (0.0-2.0); Eosinophils # (auto) 0.3 10 ^3/uL (0-0.8); Eosinophils % (auto) 3.6 % (0.0-7.0); Hematocrit 28.2 % (36.0-46.0); Hemoglobin 8.9 g/dL (12.2-16.2); Lymphocytes % (auto) 26.2 % (10.0-50.0); Mean Corpuscular Hemoglobin 26.8 pg (28.0-32.0); Mean Corpuscular Hgb Conc. 31.8 g/dL (32.0-36.0); Mean Corpuscular Volume 84.3 fL (80.0-100.0); Monocytes # (auto) 0.4 10 ^3/uL (0-1.3); Monocytes % (auto) 5.8 % (0.0-12.0); Neutrophils # (auto) 4.8 10 ^3/uL (1.6-8.6); Neutrophils % (auto) 63.9 % (37.0-80.0); Nucleated Red Blood Cells % 0.1 %; Red Blood Cells 3.34 10^6/uL (4.0-5.20); Red Cell Distribution Width 16.7 % (11.8-14.3); White Blood Cell 7.5 10^3/uL (4.4-10.8)
[2022-01-30 10:45] LABS: Albumin 2.8 g/dL (3.4-5.0); Potassium 5.2 mmol/L (3.5-5.1)
[2022-01-30 10:52] LABS: BUN/Creatinine Ratio 15.2; Bilirubin, Total 0.3 mg/dL (0.2-1.0); Calcium 8.8 mg/dL (8.5-10.1)
== END | disposition home or self-care (01) ==
LOC: LAB 09:53
PROVIDERS: ATTEND Internal Medicine
DX: L08.9 Local infection of the skin and subcutaneous tissue, unspecified (principal); E11.9 Type 2 diabetes mellitus without complications; I10 Essential (primary) hypertension; Z79.899 Other long term (current) drug therapy
CPT/HCPCS: 36415; 80053; 80061; 83036; 85025; 87070; 87077; 87186; 87205

== ENCOUNTER → 2022-02-16 | Outpatient (CLI) | payer MEDICARE, MEDICAID ==
[2022-02-16 11:24] LABS: BUN/Creatinine Ratio 16.5; Calcium 8.8 mg/dL (8.5-10.1); Potassium 5.2 mmol/L (3.5-5.1)
== END | disposition home or self-care (01) ==
LOC: LAB 10:40
PROVIDERS: ATTEND Internal Medicine
DX: E11.9 Type 2 diabetes mellitus without complications (principal)
CPT/HCPCS: 36415; 80048

== ENCOUNTER 2022-03-01 11:12 | Inpatient (IN) | payer MEDICARE, OTHER ==
[~2022-03-01] VITALS: Ht 160 cm; Wt 56.6 kg
[2022-03-01 19:01] LABS: Basophils # (auto) 0 10 ^3/uL (0-0.2); Basophils % (auto) 0.4 % (0.0-2.0); Eosinophils # (auto) 0.1 10 ^3/uL (0-0.8); Hemoglobin 9.7 g/dL (12.2-16.2); Mean Corpuscular Volume 84.5 fL (80.0-100.0)
[2022-03-01 19:03] LABS: Eosinophils % (auto) 1.7 % (0.0-7.0); Hematocrit 30.8 % (36.0-46.0); Lymphocytes # (auto) 1.6 10 ^3/uL (0.4-5.4); Lymphocytes % (auto) 18.7 % (10.0-50.0); Mean Corpuscular Hemoglobin 26.6 pg (28.0-32.0); Mean Corpuscular Hgb Conc. 31.4 g/dL (32.0-36.0); Monocytes # (auto) 0.5 10 ^3/uL (0-1.3); Monocytes % (auto) 6.4 % (0.0-12.0); Neutrophils # (auto) 6.2 10 ^3/uL (1.6-8.6); Neutrophils % (auto) 72.8 % (37.0-80.0); Nucleated Red Blood Cells % 0.1 %; Red Blood Cells 3.65 10^6/uL (4.0-5.20); Red Cell Distribution Width 16.1 % (11.8-14.3); White Blood Cell 8.5 10^3/uL (4.4-10.8)
[2022-03-01 19:18] LABS: Potassium 4.5 mmol/L (3.5-5.1)
[2022-03-01 19:24] LABS: Albumin 3.1 g/dL (3.4-5.0); BUN/Creatinine Ratio 12.9; Bilirubin, Total 0.3 mg/dL (0.2-1.0); Calcium 8.5 mg/dL (8.5-10.1); Total Protein 7.2 g/dL (6.4-8.2)
[2022-03-01 19:26] LABS: INR 1.09 (0.9-1.15)
[2022-03-01] MEDS ORDERED: ACETAMINOPHEN 325 MG TAB PO PRN (20:30)
[2022-03-01] MEDS ORDERED: DEXTROSE (50%) 50ML SYRG IV PRN (20:30)
[2022-03-01] MEDS ORDERED: ONDANSETRON HCL 4 MG/2 ML VIAL IV PRN (20:30)
[2022-03-01] MEDS ORDERED: HYDROcodone-ACET 5/325MG TAB PO PRN (21:00)
[2022-03-01] MEDS ORDERED: MORPHINE SULFATE INJ 2 MG/ml SYRG IV PRN (21:00)
[2022-03-01] MEDS: InsuLIN REG 1unit/0.01ml Soln (100units/ml) SC SCH (22:00)
[2022-03-01] MEDS: ATORVASTATIN 20 MG TAB PO SCH (22:05)
[2022-03-01] MEDS: SODIUM BICARBONATE 650 MG TAB PO SCH (22:05)
[2022-03-01] MEDS: DONEPEZIL HYDROCHLORIDE 5 MG TAB PO SCH (22:05)
[2022-03-01] MEDS: ACCU-CHEK COMFORT CURVE STRIP VI SCH (22:09)
[2022-03-01 22:47] LABS: Urine Bacteria NONE SEEN /hpf (None Seen); Urine Blood 2+ /uL (Negative); Urine Specific Gravity 1.006 (1.001-1.035); Urine WBC 149 /hpf (0 - 5)
[2022-03-02 03:57] LABS: Basophils # (auto) 0 10 ^3/uL (0-0.2); Basophils % (auto) 0.2 % (0.0-2.0); Eosinophils # (auto) 0.2 10 ^3/uL (0-0.8); Eosinophils % (auto) 2.6 % (0.0-7.0); Hematocrit 31.5 % (36.0-46.0); Hemoglobin 10.1 g/dL (12.2-16.2); Lymphocytes # (auto) 1.8 10 ^3/uL (0.4-5.4); Lymphocytes % (auto) 25.4 % (10.0-50.0); Mean Corpuscular Hemoglobin 26.8 pg (28.0-32.0); Mean Corpuscular Volume 83.8 fL (80.0-100.0); Monocytes # (auto) 0.6 10 ^3/uL (0-1.3); Monocytes % (auto) 8.4 % (0.0-12.0); Neutrophils # (auto) 4.4 10 ^3/uL (1.6-8.6); Neutrophils % (auto) 63.4 % (37.0-80.0); Red Blood Cells 3.76 10^6/uL (4.0-5.20); Red Cell Distribution Width 16.4 % (11.8-14.3)
[2022-03-02 04:12] LABS: Potassium 4.8 mmol/L (3.5-5.1)
[2022-03-02 04:19] LABS: BUN/Creatinine Ratio 13.5; Bilirubin, Total 0.2 mg/dL (0.2-1.0); Calcium 8.8 mg/dL (8.5-10.1); Total Protein 7.1 g/dL (6.4-8.2)
[2022-03-02] MEDS: InsuLIN REG 1unit/0.01ml Soln (100units/ml) SC SCH ×4 (07:00→22:26)
[2022-03-02] MEDS: ACCU-CHEK COMFORT CURVE STRIP VI SCH ×4 (07:23→22:19)
[2022-03-02] MEDS: cefTRIAXone 1GM/50ML D5W 50 ML IV SCH (09:21)
[2022-03-02] MEDS: ISOSORBIDE MONONITRATE ER 60 MG TAB PO SCH (10:00)
[2022-03-02] MEDS: SODIUM BICARBONATE 650 MG TAB PO SCH ×2 (10:00→22:27)
[2022-03-02] MEDS ORDERED: LIDOCAINE 2%HCL (LOCAL ANESTH.) INJ 10ml MDV ONE (11:28)
[2022-03-02] MEDS ORDERED: IOHEXOL 350 MG/ML 100ML IJ ONE (11:28)
[2022-03-02] MEDS ORDERED: SODI650T PO (15:28)
[2022-03-02] MEDS ORDERED: LOS25T PO (15:28)
[2022-03-02] MEDS ORDERED: CIPR500T4 PO (15:28)
[2022-03-02] MEDS ORDERED: MUPI2OIN2 TOP (15:28)
[2022-03-02 17:00] VITALS: BP 156/51
[2022-03-02 22:00] VITALS: BP 146/58
[2022-03-02] MEDS: ATORVASTATIN 20 MG TAB PO SCH (22:27)
[2022-03-02] MEDS: DONEPEZIL HYDROCHLORIDE 5 MG TAB PO SCH (22:27)
[2022-03-03 05:00] VITALS: BP 149/62
[2022-03-03] MEDS: InsuLIN REG 1unit/0.01ml Soln (100units/ml) SC SCH (06:29)
[2022-03-03] MEDS: ACCU-CHEK COMFORT CURVE STRIP VI SCH (06:29)
[2022-03-03 09:00] VITALS: BP 132/49
[2022-03-03] MEDS: cefTRIAXone 1GM/50ML D5W 50 ML IV SCH (10:06)
[2022-03-03] MEDS: ISOSORBIDE MONONITRATE ER 60 MG TAB PO SCH (10:07)
[2022-03-03] MEDS: SODIUM BICARBONATE 650 MG TAB PO SCH (10:07)
[2022-03-03] MEDS ORDERED: NITR-52 PO (10:41)
[2022-03-03 11:21] VITALS: BP 132/49
== END 2022-03-03 15:01 | disposition home or self-care (01) | DRG 466 ==
LOC: ER 11:12 → OVERFLOW 20:30 → WEST WING 03-02 11:42
PROVIDERS: ADMIT Nurse Practitioner; ATTEND Internal Medicine Pulmonary Disease
PROC: 0T25X0Z Change Drainage Device in Kidney, External Approach (ICD-10-PCS; principal; 2022-03-02)
DX: T83.092A Other mechanical complication of nephrostomy catheter, initial encounter (principal); E43 Unspecified severe protein-calorie malnutrition; E11.22 Type 2 diabetes mellitus with diabetic chronic kidney disease; N13.6 Pyonephrosis; E78.5 Hyperlipidemia, unspecified; B96.20 Unspecified Escherichia coli [E. coli] as the cause of diseases classified elsewhere; I12.9 Hypertensive chronic kidney disease with stage 1 through stage 4 chronic kidney disease, or unspecified chronic kidney disease; Y73.1 Therapeutic (nonsurgical) and rehabilitative gastroenterology and urology devices associated with adverse incidents; I25.10 Atherosclerotic heart disease of native coronary artery without angina pectoris; Z20.822 Contact with and (suspected) exposure to COVID-19; N18.9 Chronic kidney disease, unspecified; R31.9 Hematuria, unspecified; I25.2 Old myocardial infarction; Z68.22 Body mass index [BMI] 22.0-22.9, adult; Z95.1 Presence of aortocoronary bypass graft; Y92.89 Other specified places as the place of occurrence of the external cause; Z79.84 Long term (current) use of oral hypoglycemic drugs
CPT/HCPCS: 36415; 74176; 75984; 76775; 80053; 81001; 82962; 85025; 85610; 87086; 87088; 87186; 96365; 99152; G0378; J0696; J1815; J2001

== ENCOUNTER 2022-03-18 11:17 | Inpatient (IN) | payer MEDICARE, OTHER ==
[~2022-03-18] VITALS: Ht 154.9 cm; Wt 55.0 kg
[2022-03-18 12:32] LABS: Basophils # (auto) 0 10 ^3/uL (0-0.2); Basophils % (auto) 0.7 % (0.0-2.0); Eosinophils # (auto) 0.1 10 ^3/uL (0-0.8); Eosinophils % (auto) 1.4 % (0.0-7.0); Hematocrit 31.3 % (36.0-46.0); Lymphocytes # (auto) 1.8 10 ^3/uL (0.4-5.4); Lymphocytes % (auto) 24.9 % (10.0-50.0); Mean Corpuscular Hgb Conc. 31.9 g/dL (32.0-36.0); Mean Corpuscular Volume 84.5 fL (80.0-100.0); Monocytes # (auto) 0.4 10 ^3/uL (0-1.3); Monocytes % (auto) 5.6 % (0.0-12.0); Neutrophils % (auto) 67.4 % (37.0-80.0); Nucleated Red Blood Cells % 0.1 %; Red Blood Cells 3.71 10^6/uL (4.0-5.20); Red Cell Distribution Width 16.1 % (11.8-14.3); White Blood Cell 7.4 10^3/uL (4.4-10.8)
[2022-03-18 12:52] LABS: Albumin 3.3 g/dL (3.4-5.0); Calcium 8.8 mg/dL (8.5-10.1)
[2022-03-18 12:57] LABS: BUN/Creatinine Ratio 15.7; Bilirubin, Total 0.2 mg/dL (0.2-1.0); Total Protein 7.4 g/dL (6.4-8.2)
[2022-03-18 13:14] LABS: Potassium 6.4 mmol/L (3.5-5.1)
[2022-03-18] MEDS ORDERED: SODIUM CHLORIDE 0.9% 1,000 ML IV ONE ×2 (13:30→16:00)
[2022-03-18] MEDS ORDERED: SODIUM CHLORIDE 0.9% 500 ML IV ONE (16:00)
[2022-03-18] MEDS ORDERED: ONDANSETRON HCL 4 MG/2 ML VIAL IV PRN (16:00)
[2022-03-18] MEDS ORDERED: DOCUSATE SOD 100 MG CAP PO PRN (16:00)
[2022-03-18] MEDS ORDERED: ACETAMINOPHEN 325 MG TAB PO PRN (16:00)
[2022-03-18] MEDS ORDERED: DEXTROSE (50%) 50ML SYRG IV PRN (16:00)
[2022-03-18] MEDS ORDERED: FUROSEMIDE 100 MG/10ML VIAL IV ONE (16:00)
[2022-03-18] MEDS ORDERED: SODIUM ZIRCONIUM CYCL 10 GM PAK PO ONE ×2 (16:00→23:15)
[2022-03-18] MEDS ORDERED: HYDROcodone-ACET 5/325MG TAB PO PRN (16:00)
[2022-03-18] MEDS: InsuLIN REG 1unit/0.01ml Soln (100units/ml) SC SCH ×2 (16:43→22:00)
[2022-03-18] MEDS: ACCU-CHEK COMFORT CURVE STRIP VI SCH ×2 (16:44→22:16)
[2022-03-18 22:07] LABS: Albumin 3.3 g/dL (3.4-5.0); BUN/Creatinine Ratio 15.5; Calcium 8.5 mg/dL (8.5-10.1)
[2022-03-18 22:10] LABS: Bilirubin, Total 0.2 mg/dL (0.2-1.0); Total Protein 7.2 g/dL (6.4-8.2)
[2022-03-18 22:21] LABS: Potassium 5.8 mmol/L (3.5-5.1)
[2022-03-18] MEDS: SODIUM BICARBONATE 650 MG TAB PO SCH (22:21)
[2022-03-18 23:53] VITALS: BP 168/47
[2022-03-19] MEDS ORDERED: cloNIDine HCL 0.1 MG TAB PO PRN (00:45)
[2022-03-19 05:00] VITALS: BP 128/83
[2022-03-19] MEDS: ACCU-CHEK COMFORT CURVE STRIP VI SCH ×4 (06:03→23:30)
[2022-03-19 06:26] LABS: Albumin 3.2 g/dL (3.4-5.0); BUN/Creatinine Ratio 15.3; Calcium 8.6 mg/dL (8.5-10.1); Potassium 4.6 mmol/L (3.5-5.1)
[2022-03-19] MEDS: InsuLIN REG 1unit/0.01ml Soln (100units/ml) SC SCH ×4 (06:26→22:00)
[2022-03-19 06:28] LABS: Basophils # (auto) 0 10 ^3/uL (0-0.2); Basophils % (auto) 0.6 % (0.0-2.0); Eosinophils # (auto) 0.2 10 ^3/uL (0-0.8); Eosinophils % (auto) 2.8 % (0.0-7.0); Hematocrit 31.1 % (36.0-46.0); Hemoglobin 9.9 g/dL (12.2-16.2); Lymphocytes # (auto) 2.1 10 ^3/uL (0.4-5.4); Lymphocytes % (auto) 30.6 % (10.0-50.0); Mean Corpuscular Hemoglobin 27.3 pg (28.0-32.0); Mean Corpuscular Volume 85.2 fL (80.0-100.0); Monocytes # (auto) 0.6 10 ^3/uL (0-1.3); Monocytes % (auto) 8.1 % (0.0-12.0); Neutrophils # (auto) 3.9 10 ^3/uL (1.6-8.6); Neutrophils % (auto) 57.9 % (37.0-80.0); Red Blood Cells 3.65 10^6/uL (4.0-5.20); White Blood Cell 6.8 10^3/uL (4.4-10.8)
[2022-03-19 06:29] LABS: Bilirubin, Total 0.3 mg/dL (0.2-1.0); Total Protein 6.9 g/dL (6.4-8.2)
[2022-03-19 09:00] VITALS: BP 130/45
[2022-03-19] MEDS: ENOXAPARIN SOD 30 MG/0.3 ML SYRINGE SC SCH (09:57)
[2022-03-19] MEDS: ASPirin 81 mg TAB PO SCH (09:57)
[2022-03-19] MEDS: SODIUM BICARBONATE 650 MG TAB PO SCH ×2 (09:59→23:30)
[2022-03-19] MEDS: ISOSORBIDE MONONITRATE ER 60 MG TAB PO SCH (09:59)
[2022-03-19 13:00] VITALS: BP 118/48
[2022-03-19 14:22] LABS: Magnesium 1.6 mg/dL (1.6-2.6); Phosphorus 4.5 mg/dL (2.5-4.90)
[2022-03-19 16:33] LABS: Protein, Urine 141.5 mg/dL (0.0-11.9)
[2022-03-19 17:00] VITALS: BP 120/47
[2022-03-19 17:23] LABS: Urine Bacteria FEW /hpf (None Seen); Urine Blood TRACE /uL (Negative); Urine Specific Gravity 1.014 (1.001-1.035); Urine WBC 97 /hpf (0 - 5); Urine WBC Clumps PRESENT /hpf (None Seen)
[2022-03-19 22:00] VITALS: BP 124/51
[2022-03-19] MEDS ORDERED: ATORVASTATIN 20 MG TAB PO SCH (22:00)
[2022-03-20 05:00] VITALS: BP 146/46
[2022-03-20] MEDS: InsuLIN REG 1unit/0.01ml Soln (100units/ml) SC SCH ×2 (07:00→11:30)
[2022-03-20] MEDS: ACCU-CHEK COMFORT CURVE STRIP VI SCH ×2 (08:43→11:57)
[2022-03-20 09:00] VITALS: BP 152/44
[2022-03-20] MEDS ORDERED: CIPROFLOXACIN HCL 500 MG TAB PO ONE (10:15)
[2022-03-20] MEDS ORDERED: CIPR-173 PO (10:15)
[2022-03-20] MEDS: ASPirin 81 mg TAB PO SCH (10:30)
[2022-03-20] MEDS: SODIUM BICARBONATE 650 MG TAB PO SCH (10:30)
[2022-03-20] MEDS: ISOSORBIDE MONONITRATE ER 60 MG TAB PO SCH (10:32)
[2022-03-20] MEDS: ENOXAPARIN SOD 30 MG/0.3 ML SYRINGE SC SCH (10:32)
[2022-03-20 11:18] LABS: Potassium 4.9 mmol/L (3.5-5.1)
[2022-03-20 11:22] LABS: BUN/Creatinine Ratio 19.1; Calcium 8.7 mg/dL (8.5-10.1)
[2022-03-20 13:00] VITALS: BP 143/53
[2022-03-20 13:02] VITALS: BP 143/53
== END 2022-03-20 15:20 | disposition home or self-care (01) | DRG 201 ==
LOC: ER 11:17 → OVERFLOW 15:49 → TELE-EAST 23:43
PROVIDERS: ADMIT Internal Medicine; ATTEND Family Medicine
DX: I44.0 Atrioventricular block, first degree (principal); N17.0 Acute kidney failure with tubular necrosis; D63.1 Anemia in chronic kidney disease; E87.2 Acidosis; N13.6 Pyonephrosis; E87.5 Hyperkalemia; I12.9 Hypertensive chronic kidney disease with stage 1 through stage 4 chronic kidney disease, or unspecified chronic kidney disease; Z20.822 Contact with and (suspected) exposure to COVID-19; R00.1 Bradycardia, unspecified; E78.5 Hyperlipidemia, unspecified; I25.10 Atherosclerotic heart disease of native coronary artery without angina pectoris; N18.4 Chronic kidney disease, stage 4 (severe); Z79.4 Long term (current) use of insulin; Z87.442 Personal history of urinary calculi; Z93.6 Other artificial openings of urinary tract status; Z95.1 Presence of aortocoronary bypass graft; Z85.51 Personal history of malignant neoplasm of bladder
CPT/HCPCS: 36415; 76775; 80048; 80053; 81001; 82306; 82570; 82962; 83735; 83970; 84100; 84156; 84300; 84484; 85025; 93005; 96361; 96374; G0378

== ENCOUNTER → 2022-03-18 | Outpatient (CLI) | payer MEDICARE, OTHER ==
[~2022-03-18] MED LIST changes: +CIPR500T4 PO; +LOS25T PO; +MUPI2OIN2 TOP; +NITR-52 PO; +SODI650T PO
[2022-03-18 09:56] LABS: BUN/Creatinine Ratio 17.9; Calcium 9.2 mg/dL (8.5-10.1)
[2022-03-18 10:38] LABS: Potassium 6.3 mmol/L (3.5-5.1)
== END | disposition home or self-care (01) ==
LOC: LAB 09:17
PROVIDERS: ATTEND Internal Medicine
DX: E11.9 Type 2 diabetes mellitus without complications (principal)
CPT/HCPCS: 36415; 80048

== ENCOUNTER 2022-04-27 10:23 | Emergency (ER) | payer MEDICARE, OTHER ==
[~2022-04-27] VITALS: Ht 154.9 cm; Wt 56.5 kg
[~2022-04-27 10:23] MED LIST changes: -NITR-87 PO
[2022-04-27 12:25] LABS: Basophils # (auto) 0 10 ^3/uL (0-0.2); Basophils % (auto) 0.4 % (0.0-2.0); Eosinophils # (auto) 0.1 10 ^3/uL (0-0.8); Eosinophils % (auto) 1.2 % (0.0-7.0); Hematocrit 33.4 % (36.0-46.0); Hemoglobin 10.6 g/dL (12.2-16.2); Lymphocytes # (auto) 1.6 10 ^3/uL (0.4-5.4); Lymphocytes % (auto) 23.3 % (10.0-50.0); Mean Corpuscular Hemoglobin 27.4 pg (28.0-32.0); Mean Corpuscular Hgb Conc. 31.8 g/dL (32.0-36.0); Mean Corpuscular Volume 86.2 fL (80.0-100.0); Monocytes # (auto) 0.4 10 ^3/uL (0-1.3); Monocytes % (auto) 5.3 % (0.0-12.0); Neutrophils # (auto) 4.9 10 ^3/uL (1.6-8.6); Neutrophils % (auto) 69.8 % (37.0-80.0); Nucleated Red Blood Cells % 0.1 %; Red Blood Cells 3.88 10^6/uL (4.0-5.20); Red Cell Distribution Width 16.4 % (11.8-14.3); White Blood Cell 7.1 10^3/uL (4.4-10.8)
[2022-04-27 12:42] LABS: INR 1.03 (0.9-1.15); Partial Thromboplastin Time 33.2 sec (24.6-33.4)
[2022-04-27 12:57] LABS: Albumin 3.5 g/dL (3.4-5.0); BUN/Creatinine Ratio 13.2; Calcium 8.4 mg/dL (8.5-10.1); Potassium 5.2 mmol/L (3.5-5.1)
[2022-04-27 13:00] LABS: Bilirubin, Total 0.2 mg/dL (0.2-1.0); Total Protein 7.2 g/dL (6.4-8.2)
[2022-04-27 17:15] LABS: Urine Bacteria FEW /hpf (None Seen); Urine Blood 1+ /uL (Negative); Urine Specific Gravity 1.013 (1.001-1.035); Urine WBC 34 /hpf (0 - 5)
[2022-04-27] MEDS ORDERED: NITR-87 PO (17:24)
[2022-04-27] MEDS ORDERED: NITROFURANTOIN 100 mg CAP PO ONE (17:30)
[2022-04-27 19:40] VITALS: BP 116/62
== END 2022-04-27 19:45 | disposition home or self-care (01) ==
LOC: ER 10:23
DX: T83.022A Displacement of nephrostomy catheter, initial encounter (principal); E11.22 Type 2 diabetes mellitus with diabetic chronic kidney disease; I12.9 Hypertensive chronic kidney disease with stage 1 through stage 4 chronic kidney disease, or unspecified chronic kidney disease; N18.9 Chronic kidney disease, unspecified; I25.2 Old myocardial infarction; Z87.442 Personal history of urinary calculi
CPT/HCPCS: 36415; 74176; 80053; 81001; 85025; 85610; 85730

== ENCOUNTER → 2022-04-27 | Outpatient (CLI) | payer MEDICARE, OTHER ==
[~2022-04-27] MED LIST changes: +CIPR-173 PO; +NITR-87 PO
[2022-04-27 12:11] LABS: BUN/Creatinine Ratio 13.8; Calcium 8.6 mg/dL (8.5-10.1)
[2022-04-27 13:08] LABS: Potassium 5.8 mmol/L (3.5-5.1)
== END | disposition home or self-care (01) ==
LOC: LAB 10:07
PROVIDERS: ATTEND Internal Medicine
DX: N18.4 Chronic kidney disease, stage 4 (severe) (principal)
CPT/HCPCS: 36415; 80048

== ENCOUNTER 2022-06-10 01:40 | Inpatient (IN) | payer MEDICARE, OTHER ==
[~2022-06-10] VITALS: Ht 144.8 cm; Wt 66.9 kg
[~2022-06-10 01:40] MED LIST changes: +NITR-87 PO
[2022-06-10] MEDS ORDERED: MORPHINE SULFATE 4 MG/ML SYR/VIAL IV ONE (02:00)
[2022-06-10] MEDS ORDERED: ONDANSETRON HCL 4 MG/2 ML VIAL IV ONE ×2 (02:00→03:45)
[2022-06-10 02:29] LABS: Basophils # (auto) 0 10 ^3/uL (0-0.2); Basophils % (auto) 0.5 % (0.0-2.0); Eosinophils # (auto) 0.1 10 ^3/uL (0-0.8); Eosinophils % (auto) 1.2 % (0.0-7.0); Hematocrit 34.8 % (36.0-46.0); Hemoglobin 11.1 g/dL (12.2-16.2); Lymphocytes # (auto) 2.2 10 ^3/uL (0.4-5.4); Lymphocytes % (auto) 21.7 % (10.0-50.0); Mean Corpuscular Hemoglobin 28.3 pg (28.0-32.0); Mean Corpuscular Volume 88.6 fL (80.0-100.0); Monocytes # (auto) 0.5 10 ^3/uL (0-1.3); Monocytes % (auto) 4.4 % (0.0-12.0); Neutrophils # (auto) 7.4 10 ^3/uL (1.6-8.6); Neutrophils % (auto) 72.2 % (37.0-80.0); Red Blood Cells 3.93 10^6/uL (4.0-5.20); Red Cell Distribution Width 16.6 % (11.8-14.3); White Blood Cell 10.2 10^3/uL (4.4-10.8)
[2022-06-10 02:47] LABS: Albumin 3.3 g/dL (3.4-5.0); BUN/Creatinine Ratio 16.7; Calcium 8.7 mg/dL (8.5-10.1)
[2022-06-10 02:50] LABS: Bilirubin, Total 0.3 mg/dL (0.2-1.0); Total Protein 7.6 g/dL (6.4-8.2)
[2022-06-10 03:08] LABS: Potassium 5.7 mmol/L (3.5-5.1)
[2022-06-10] MEDS ORDERED: InsuLIN REG 1unit/0.01ml Soln (100units/ml) IV ONE ×2 (03:30→20:30)
[2022-06-10] MEDS ORDERED: SODIUM BICARBONATE 8.4 % INJ 50ML VIAL IV ONE (03:30)
[2022-06-10] MEDS ORDERED: CALCIUM CHL 100MG/ML 1,000 MG in D5W 5% 100 ML IV ONE (03:30)
[2022-06-10] MEDS ORDERED: DEXTROSE (50%) 50ML SYRG IV ONE ×2 (03:30→20:30)
[2022-06-10] MEDS ORDERED: HYDROmorphone HCL 2 MG/ML VL/or syr IV ONE ×2 (03:45→05:30)
[2022-06-10] MEDS ORDERED: HYDROmorphone HCL 2 MG/ML VL/or syr IM ONE (03:45)
[2022-06-10] MEDS ORDERED: CALCIUM GLUC 1,000mg/50ml-NS 0 ML IV ONE (04:09)
[2022-06-10] MEDS ORDERED: CALCIUM GLUC 1,000mg/50ml-NS 50 ML IV ONE ×3 (04:28→20:30)
[2022-06-10] MEDS ORDERED: MORPHINE SULFATE INJ 2 MG/ml SYRG IV PRN (07:15)
[2022-06-10] MEDS ORDERED: DEXTROSE (50%) 50ML SYRG IV PRN (07:15)
[2022-06-10] MEDS ORDERED: ACETAMINOPHEN 325 MG TAB PO PRN (07:15)
[2022-06-10] MEDS ORDERED: SODIUM ZIRCONIUM CYCL 10 GM PAK PO ONE (07:15)
[2022-06-10] MEDS: amLODIPine BESYLATE 5 MG TAB PO SCH (10:00)
[2022-06-10] MEDS: SODIUM BICARBONATE 650 MG TAB PO SCH ×2 (10:18→22:07)
[2022-06-10] MEDS: PANTOPRAZOLE 40 MG TAB PO SCH (10:18)
[2022-06-10] MEDS: ACCU-CHEK COMFORT CURVE STRIP VI SCH ×3 (11:39→22:06)
[2022-06-10] MEDS: InsuLIN REG 1unit/0.01ml Soln (100units/ml) SC SCH ×3 (11:53→23:25)
[2022-06-10 13:58] LABS: Urine Bacteria NONE SEEN /hpf (None Seen); Urine Blood 3+ /uL (Negative); Urine Budding Yeast MODERATE /hpf (None Seen); Urine Specific Gravity 1.011 (1.001-1.035); Urine WBC 237 /hpf (0 - 5); Urine WBC Clumps PRESENT /hpf (None Seen)
[2022-06-10] MEDS: HYDROcodone-ACET 5/325MG TAB PO PRN (14:18)
[2022-06-10] MEDS ORDERED: MEPERIDINE HCL (25 MG/ML) 1ML VIAL ONE (14:45)
[2022-06-10] MEDS ORDERED: MEPERIDINE HCL (25 MG/ML) 1ML VIAL IV ONE (14:45)
[2022-06-10] MEDS ORDERED: SOD CHL 0.45% 1,000 ML IV SCH (15:00)
[2022-06-10] MEDS: MORPHINE SULFATE INJ 2 MG/ml SYRG IV PRN (18:34)
[2022-06-10] MEDS: ONDANSETRON HCL 4 MG/2 ML VIAL IV PRN (18:35)
[2022-06-10 19:30] LABS: BUN/Creatinine Ratio 18.1; Calcium 8.8 mg/dL (8.5-10.1)
[2022-06-10 19:34] LABS: Potassium 5.7 mmol/L (3.5-5.1)
[2022-06-10] MEDS ORDERED: ALBUTEROL SULF 2.5 MG/0.5ML(0.5%) NEB SOLN NEB ONE (20:30)
[2022-06-10 22:00] VITALS: BP 135/41
[2022-06-10] MEDS: SODIUM ZIRCONIUM CYCL 10 GM PAK PO SCH (22:00)
[2022-06-10] MEDS: DONEPEZIL HYDROCHLORIDE 5 MG TAB PO SCH (22:07)
[2022-06-10] MEDS: SODIUM BICARB 50ML SYR 50 ML in SOD CHL 0.45% 1,000 ML IV SCH (23:26)
[2022-06-11] VITALS (7 sets, daily range): BP systolic 111–160; BP diastolic 23–58
[2022-06-11] MEDS: SODIUM ZIRCONIUM CYCL 10 GM PAK PO SCH ×4 (00:51→21:55)
[2022-06-11] MEDS: ACCU-CHEK COMFORT CURVE STRIP VI SCH ×4 (06:12→21:57)
[2022-06-11] MEDS: InsuLIN REG 1unit/0.01ml Soln (100units/ml) SC SCH ×4 (06:14→21:57)
[2022-06-11 06:37] LABS: Basophils # (auto) 0 10 ^3/uL (0-0.2); Basophils % (auto) 0.3 % (0.0-2.0); Eosinophils # (auto) 0 10 ^3/uL (0-0.8); Eosinophils % (auto) 0.2 % (0.0-7.0); Hematocrit 26.2 % (36.0-46.0); Hemoglobin 8.5 g/dL (12.2-16.2); Lymphocytes # (auto) 1.2 10 ^3/uL (0.4-5.4); Lymphocytes % (auto) 12.6 % (10.0-50.0); Mean Corpuscular Hemoglobin 28.4 pg (28.0-32.0); Mean Corpuscular Hgb Conc. 32.5 g/dL (32.0-36.0); Mean Corpuscular Volume 87.3 fL (80.0-100.0); Monocytes # (auto) 0.6 10 ^3/uL (0-1.3); Monocytes % (auto) 6.6 % (0.0-12.0); Neutrophils # (auto) 7.7 10 ^3/uL (1.6-8.6); Neutrophils % (auto) 80.3 % (37.0-80.0); Red Cell Distribution Width 15.8 % (11.8-14.3); White Blood Cell 9.6 10^3/uL (4.4-10.8)
[2022-06-11 06:53] LABS: INR 1.05 (0.9-1.15); Partial Thromboplastin Time 32.9 sec (24.6-33.4)
[2022-06-11 06:57] LABS: Albumin 2.9 g/dL (3.4-5.0); Calcium 8.3 mg/dL (8.5-10.1); Potassium 5.4 mmol/L (3.5-5.1)
[2022-06-11 07:02] LABS: BUN/Creatinine Ratio 18.8; Bilirubin, Total 0.2 mg/dL (0.2-1.0)
[2022-06-11] MEDS: amLODIPine BESYLATE 5 MG TAB PO SCH (10:09)
[2022-06-11] MEDS: SODIUM BICARBONATE 650 MG TAB PO SCH ×2 (10:09→21:55)
[2022-06-11] MEDS: PANTOPRAZOLE 40 MG TAB PO SCH (10:09)
[2022-06-11] MEDS: KETOROLAC TROMETH 30 MG/ML 1ML VIAL IV PRN ×2 (10:10→17:23)
[2022-06-11] MEDS: HYDROcodone-ACET 5/325MG TAB PO PRN (13:23)
[2022-06-11 13:59] LABS: BUN/Creatinine Ratio 18.8; Calcium 8.4 mg/dL (8.5-10.1); Potassium 4.8 mmol/L (3.5-5.1)
[2022-06-11] MEDS: SODIUM BICARB 50ML SYR 50 ML in SOD CHL 0.45% 1,000 ML IV SCH (16:53)
[2022-06-11] MEDS: DONEPEZIL HYDROCHLORIDE 5 MG TAB PO SCH (21:55)
[2022-06-12] VITALS (19 sets, daily range): BP systolic 117–161; BP diastolic 32–64
[2022-06-12] MEDS: SODIUM BICARB 50ML SYR 50 ML in SOD CHL 0.45% 1,000 ML IV SCH ×2 (00:30→13:43)
[2022-06-12] MEDS: KETOROLAC TROMETH 30 MG/ML 1ML VIAL IV PRN (04:37)
[2022-06-12] MEDS: SODIUM ZIRCONIUM CYCL 10 GM PAK PO SCH ×2 (06:00→14:50)
[2022-06-12] MEDS ORDERED: BUPIVACAINE W/ EPINEPH 0.25% INJ 50ML MDV ONE (06:44)
[2022-06-12] MEDS: ACCU-CHEK COMFORT CURVE STRIP VI SCH ×4 (06:46→21:46)
[2022-06-12] MEDS: InsuLIN REG 1unit/0.01ml Soln (100units/ml) SC SCH ×4 (06:46→21:51)
[2022-06-12 07:03] LABS: Basophils # (auto) 0 10 ^3/uL (0-0.2); Basophils % (auto) 0.2 % (0.0-2.0); Eosinophils # (auto) 0.1 10 ^3/uL (0-0.8); Eosinophils % (auto) 1.5 % (0.0-7.0); Hemoglobin 8.1 g/dL (12.2-16.2); Monocytes # (auto) 0.5 10 ^3/uL (0-1.3)
[2022-06-12 07:12] LABS: Hematocrit 24.3 % (36.0-46.0); Lymphocytes % (auto) 11.2 % (10.0-50.0); Mean Corpuscular Hemoglobin 28.6 pg (28.0-32.0); Mean Corpuscular Hgb Conc. 33.4 g/dL (32.0-36.0); Mean Corpuscular Volume 85.6 fL (80.0-100.0); Monocytes % (auto) 5.6 % (0.0-12.0); Neutrophils # (auto) 7.4 10 ^3/uL (1.6-8.6); Neutrophils % (auto) 81.5 % (37.0-80.0); Red Blood Cells 2.83 10^6/uL (4.0-5.20); Red Cell Distribution Width 15.3 % (11.8-14.3); White Blood Cell 9.1 10^3/uL (4.4-10.8)
[2022-06-12] MEDS ORDERED: ceFAZolin 1GM/50ML 100 ML IV ONE (07:22)
[2022-06-12 07:26] LABS: Albumin 2.6 g/dL (3.4-5.0); Calcium 7.9 mg/dL (8.5-10.1); Potassium 4.7 mmol/L (3.5-5.1)
[2022-06-12 07:29] LABS: BUN/Creatinine Ratio 17.5; Bilirubin, Total 0.4 mg/dL (0.2-1.0); Total Protein 5.5 g/dL (6.4-8.2)
[2022-06-12] MEDS ORDERED: BUPIVACAINE 0.5% P/F INJ 10 ML VIAL ONE (07:34)
[2022-06-12] MEDS ORDERED: KETAMINE HCL 10 ML ONE (07:44)
[2022-06-12] MEDS ORDERED: GLYCOPYRROLATE 0.2 MG/ML 1ML VIAL ONE (07:44)
[2022-06-12] MEDS ORDERED: ONDANSETRON HCL 4 MG/2 ML VIAL ONE (07:44)
[2022-06-12] MEDS ORDERED: MORPHINE SULF PF 5 MG/10 ML VIAL ONE (07:44)
[2022-06-12] MEDS ORDERED: PROPOFOL 10 MG/ML 20 ML IV ONE (07:44)
[2022-06-12] MEDS ORDERED: MIDAZOLAM HCL 2MG/2ML 2ml VIAL (1mg/ml) ONE (07:44)
[2022-06-12] MEDS ORDERED: PHENYLEPHRINE HCL 10 MG/ML VL ONE (07:44)
[2022-06-12] MEDS ORDERED: ePHEDrine SULFATE 50 MG/ML AMP ONE (07:44)
[2022-06-12] MEDS ORDERED: fentaNYL CITRATE 100 MCG/2 ML VL ONE (07:44)
[2022-06-12] MEDS ORDERED: ACCU-CHEK COMFORT CURVE STRIP VI ONE (09:15)
[2022-06-12] MEDS ORDERED: NALOXONE HCL 0.4 MG/ML VIAL IV PRN ×2 (09:15)
[2022-06-12] MEDS ORDERED: FLUMAZENIL 0.1 MG/ML INJ 10ML MDV IV PRN (09:15)
[2022-06-12] MEDS ORDERED: DexAMETHasone SOD PHOS 10MG/1ML VIAL INJ IV PRN (09:15)
[2022-06-12] MEDS ORDERED: ONDANSETRON HCL 4 MG/2 ML VIAL IV PRN ×2 (09:15)
[2022-06-12] MEDS: amLODIPine BESYLATE 5 MG TAB PO SCH (10:00)
[2022-06-12] MEDS: PANTOPRAZOLE 40 MG TAB PO SCH (10:00)
[2022-06-12] MEDS: SODIUM BICARBONATE 650 MG TAB PO SCH ×2 (10:00→21:36)
[2022-06-12] MEDS: cefTRIAXone 1GM/50ML D5W 50 ML IV SCH (14:50)
[2022-06-12 16:16] LABS: Urine Bacteria NONE SEEN /hpf (None Seen); Urine Blood 2+ /uL (Negative); Urine Specific Gravity 1.014 (1.001-1.035); Urine WBC 3 /hpf (0 - 5)
[2022-06-12] MEDS: DONEPEZIL HYDROCHLORIDE 5 MG TAB PO SCH (21:36)
[2022-06-13] VITALS (16 sets, daily range): BP systolic 119–162; BP diastolic 30–56
[2022-06-13] MEDS: SODIUM BICARB 50ML SYR 50 ML in SOD CHL 0.45% 1,000 ML IV SCH ×2 (04:30→15:00)
[2022-06-13] MEDS: InsuLIN REG 1unit/0.01ml Soln (100units/ml) SC SCH ×4 (05:50→21:37)
[2022-06-13] MEDS: ACCU-CHEK COMFORT CURVE STRIP VI SCH ×4 (05:52→21:35)
[2022-06-13] MEDS: ENOXAPARIN SOD 30 MG/0.3 ML SYRINGE SC SCH (05:56)
[2022-06-13 08:07] LABS: Potassium 4.7 mmol/L (3.5-5.1)
[2022-06-13 08:14] LABS: BUN/Creatinine Ratio 20.5; Calcium 8.1 mg/dL (8.5-10.1)
[2022-06-13] MEDS: cefTRIAXone 1GM/50ML D5W 50 ML IV SCH (08:36)
[2022-06-13] MEDS: SODIUM BICARBONATE 650 MG TAB PO SCH ×2 (08:37→21:34)
[2022-06-13] MEDS: PANTOPRAZOLE 40 MG TAB PO SCH (08:37)
[2022-06-13] MEDS: amLODIPine BESYLATE 5 MG TAB PO SCH (08:37)
[2022-06-13 08:47] LABS: Basophils # (auto) 0 10 ^3/uL (0-0.2); Basophils % (auto) 0.1 % (0.0-2.0); Eosinophils # (auto) 0 10 ^3/uL (0-0.8); Hemoglobin 9.3 g/dL (12.2-16.2); Lymphocytes # (auto) 0.9 10 ^3/uL (0.4-5.4); Lymphocytes % (auto) 7.9 % (10.0-50.0); Mean Corpuscular Hemoglobin 27.6 pg (28.0-32.0); Mean Corpuscular Volume 86.3 fL (80.0-100.0); Monocytes # (auto) 0.6 10 ^3/uL (0-1.3); Monocytes % (auto) 5.2 % (0.0-12.0); Neutrophils # (auto) 9.8 10 ^3/uL (1.6-8.6); Neutrophils % (auto) 86.8 % (37.0-80.0); Red Blood Cells 3.37 10^6/uL (4.0-5.20); Red Cell Distribution Width 15.6 % (11.8-14.3); White Blood Cell 11.3 10^3/uL (4.4-10.8)
[2022-06-13] MEDS: DONEPEZIL HYDROCHLORIDE 5 MG TAB PO SCH (21:34)
[2022-06-13] MEDS: KETOROLAC TROMETH 30 MG/ML 1ML VIAL IV PRN (23:06)
[2022-06-14] MEDS: ONDANSETRON HCL 4 MG/2 ML VIAL IV PRN ×2 (00:51→23:15)
[2022-06-14] MEDS: MORPHINE SULFATE INJ 2 MG/ml SYRG IV PRN ×2 (00:52→23:16)
[2022-06-14 05:00] VITALS: BP 140/57
[2022-06-14] MEDS: SODIUM BICARB 50ML SYR 50 ML in SOD CHL 0.45% 1,000 ML IV SCH ×2 (05:40→22:09)
[2022-06-14] MEDS: ENOXAPARIN SOD 30 MG/0.3 ML SYRINGE SC SCH (06:22)
[2022-06-14] MEDS: ACCU-CHEK COMFORT CURVE STRIP VI SCH ×4 (06:22→22:10)
[2022-06-14] MEDS: InsuLIN REG 1unit/0.01ml Soln (100units/ml) SC SCH ×4 (06:24→22:14)
[2022-06-14] MEDS: SODIUM BICARBONATE 650 MG TAB PO SCH ×2 (08:36→22:10)
[2022-06-14] MEDS: PANTOPRAZOLE 40 MG TAB PO SCH (08:36)
[2022-06-14] MEDS: cefTRIAXone 1GM/50ML D5W 50 ML IV SCH (08:36)
[2022-06-14] MEDS: amLODIPine BESYLATE 5 MG TAB PO SCH (08:37)
[2022-06-14 08:55] VITALS: BP 144/52
[2022-06-14 13:00] VITALS: BP 145/80
[2022-06-14 16:45] VITALS: BP 139/51
[2022-06-14 22:00] VITALS: BP 133/48
[2022-06-14] MEDS: DONEPEZIL HYDROCHLORIDE 5 MG TAB PO SCH (22:10)
[2022-06-15 05:00] VITALS: BP 155/51
[2022-06-15] MEDS: ACCU-CHEK COMFORT CURVE STRIP VI SCH ×3 (06:11→17:18)
[2022-06-15] MEDS: ENOXAPARIN SOD 30 MG/0.3 ML SYRINGE SC SCH (06:11)
[2022-06-15] MEDS: InsuLIN REG 1unit/0.01ml Soln (100units/ml) SC SCH ×3 (06:12→17:19)
[2022-06-15] MEDS: SODIUM BICARBONATE 650 MG TAB PO SCH (08:32)
[2022-06-15] MEDS: PANTOPRAZOLE 40 MG TAB PO SCH (08:32)
[2022-06-15] MEDS: cefTRIAXone 1GM/50ML D5W 50 ML IV SCH (08:33)
[2022-06-15] MEDS: amLODIPine BESYLATE 5 MG TAB PO SCH (08:33)
[2022-06-15 09:00] VITALS: BP 153/49
[2022-06-15] MEDS: HYDROcodone-ACET 5/325MG TAB PO PRN (12:31)
[2022-06-15 13:00] VITALS: BP 142/53
[2022-06-15] MEDS: SODIUM BICARB 50ML SYR 50 ML in SOD CHL 0.45% 1,000 ML IV SCH (14:36)
[2022-06-15] MEDS ORDERED: HYDR-4902 PO (15:56)
[2022-06-15 17:00] VITALS: BP 132/49
[2022-06-15 17:49] VITALS: BP 114/42
== END 2022-06-15 20:00 | disposition home health service (06) | DRG 308 ==
LOC: ER 01:40 → EDBD 01:40 → EDUNIT# 01:40 → OVERFLOW 07:10 → CENTRAL 16:30 → TELE-CENTR 06-12 16:11
PROVIDERS: ADMIT Nurse Practitioner; ATTEND Family Medicine
PROC: 05H933Z Insertion of Infusion Device into Right Brachial Vein, Percutaneous Approach (ICD-10-PCS; 2022-06-10)
PROC: B54MZZA Ultrasonography of Right Upper Extremity Veins, Guidance (ICD-10-PCS; 2022-06-10)
PROC: BQ111ZZ Fluoroscopy of Left Hip using Low Osmolar Contrast (ICD-10-PCS; 2022-06-12)
PROC: 30233N1 Transfusion of Nonautologous Red Blood Cells into Peripheral Vein, Percutaneous Approach (ICD-10-PCS; 2022-06-12)
PROC: 0QS734Z Reposition Left Upper Femur with Internal Fixation Device, Percutaneous Approach (ICD-10-PCS; principal; 2022-06-12 07:45)
DX: S72.22XA Displaced subtrochanteric fracture of left femur, initial encounter for closed fracture (principal); E87.20 Acidosis, unspecified; N17.9 Acute kidney failure, unspecified; E11.22 Type 2 diabetes mellitus with diabetic chronic kidney disease; F03.90 Unspecified dementia, unspecified severity, without behavioral disturbance, psychotic disturbance, mood disturbance, and anxiety; N13.30 Unspecified hydronephrosis; N18.4 Chronic kidney disease, stage 4 (severe); E86.0 Dehydration; E87.5 Hyperkalemia; I12.9 Hypertensive chronic kidney disease with stage 1 through stage 4 chronic kidney disease, or unspecified chronic kidney disease; Z20.822 Contact with and (suspected) exposure to COVID-19; I25.10 Atherosclerotic heart disease of native coronary artery without angina pectoris; J44.9 Chronic obstructive pulmonary disease, unspecified; W18.39XA Other fall on same level, initial encounter; E78.00 Pure hypercholesterolemia, unspecified; I25.2 Old myocardial infarction; Z82.49 Family history of ischemic heart disease and other diseases of the circulatory system; Z83.3 Family history of diabetes mellitus; Z86.19 Personal history of other infectious and parasitic diseases; Z87.442 Personal history of urinary calculi; Z95.1 Presence of aortocoronary bypass graft; Y93.89 Activity, other specified; Y92.89 Other specified places as the place of occurrence of the external cause; Y99.8 Other external cause status
CPT/HCPCS: 36415; 71045; 73502; 73700; 76000; 76775; 80048; 80053; 81001; 82962; 85025; 85610; 85730; 86850; 86900; 86901; 86920; 87081; 87086; 87088; 87186; 87426; 93005; 93306; 94640; 96365; 96375; 96376; 97116; 97162; 97530; 99291; G0378; J0690; J0696; J1815; J1885; J2250; J2405; J2704; J3490; J7060

== ENCOUNTER 2022-09-07 13:36 | Inpatient (IN) | payer MEDICARE, OTHER ==
[~2022-09-07] VITALS: Ht 157.5 cm; Wt 54.7 kg
[~2022-09-07 13:36] MED LIST changes: +HYDR-4902 PO
[2022-09-07] MEDS ORDERED: SODIUM CHLORIDE 0.9% 500 ML IVB ONE (14:15)
[2022-09-07 14:46] LABS: Basophils # (auto) 0 10 ^3/uL (0-0.2); Basophils % (auto) 0.5 % (0.0-2.0); Eosinophils # (auto) 0.1 10 ^3/uL (0-0.8); Eosinophils % (auto) 1.6 % (0.0-7.0); Hematocrit 35.2 % (36.0-46.0); Hemoglobin 11.4 g/dL (12.2-16.2); Lymphocytes # (auto) 1.9 10 ^3/uL (0.4-5.4); Lymphocytes % (auto) 23.8 % (10.0-50.0); Mean Corpuscular Hemoglobin 27.3 pg (28.0-32.0); Mean Corpuscular Hgb Conc. 32.2 g/dL (32.0-36.0); Mean Corpuscular Volume 84.8 fL (80.0-100.0); Monocytes # (auto) 0.6 10 ^3/uL (0-1.3); Monocytes % (auto) 6.9 % (0.0-12.0); Neutrophils # (auto) 5.5 10 ^3/uL (1.6-8.6); Neutrophils % (auto) 67.2 % (37.0-80.0); Nucleated Red Blood Cells % 0.1 %; Red Blood Cells 4.15 10^6/uL (4.0-5.20); Red Cell Distribution Width 16.2 % (11.8-14.3); White Blood Cell 8.1 10^3/uL (4.4-10.8)
[2022-09-07 15:01] LABS: INR 1.07 (0.9-1.15); Partial Thromboplastin Time 27.1 sec (24.6-33.4)
[2022-09-07 15:04] LABS: Alanine Aminotransferase 9 U/L (13-56); Anion Gap 8 (5-15); Aspartate Aminotransferase 9 U/L (15-37); BUN/Creatinine Ratio 8.6; Blood Urea Nitrogen 13 mg/dL (7-18); Calcium 8.9 mg/dL (8.5-10.1); Carbon Dioxide 22 mmol/L (21-32); Chloride 115 mmol/L (98-107); GFR African American 42 mL/min; GFR Non-African American 35 mL/min; Glucose 94 mg/dL (74-106); Magnesium 1.9 mg/dL (1.6-2.6); Potassium 4.1 mmol/L (3.5-5.1); Sodium 145 mmol/L (136-145)
[2022-09-07 15:07] LABS: Alkaline Phosphatase 137 U/L (45-117); Bilirubin, Total 0.2 mg/dL (0.2-1.0); Total Protein 6.8 g/dL (6.4-8.2)
[2022-09-07] MEDS ORDERED: DEXTROSE (50%) 50ML SYRG IV PRN (21:00)
[2022-09-07] MEDS ORDERED: ONDANSETRON HCL 4 MG/2 ML VIAL IV PRN (21:00)
[2022-09-07] MEDS ORDERED: ACETAMINOPHEN 325 MG TAB PO PRN (21:00)
[2022-09-07 21:51] LABS: Urine Bacteria FEW /hpf (None Seen); Urine Blood 2+ /uL (Negative); Urine Mucus FEW (None Seen); Urine Specific Gravity 1.013 (1.001-1.035); Urine WBC 1750 /hpf (0 - 5); Urine WBC Clumps PRESENT /hpf (None Seen)
[2022-09-07] MEDS: cefTRIAXone 1GM/50ML D5W 50 ML IV SCH (23:14)
[2022-09-07] MEDS: ACCU-CHEK COMFORT CURVE STRIP VI SCH (23:15)
[2022-09-07] MEDS: ATORVASTATIN 20 MG TAB PO SCH (23:15)
[2022-09-07] MEDS: InsuLIN REG 1unit/0.01ml Soln (100units/ml) SC SCH (23:19)
[2022-09-08 06:12] LABS: Basophils # (auto) 0 10 ^3/uL (0-0.2); Basophils % (auto) 0.3 % (0.0-2.0); Eosinophils # (auto) 0.1 10 ^3/uL (0-0.8); Eosinophils % (auto) 1.1 % (0.0-7.0); Hematocrit 31.1 % (36.0-46.0); Hemoglobin 10.3 g/dL (12.2-16.2); Lymphocytes # (auto) 1.4 10 ^3/uL (0.4-5.4); Lymphocytes % (auto) 16.2 % (10.0-50.0); Mean Corpuscular Hemoglobin 28.1 pg (28.0-32.0); Mean Corpuscular Hgb Conc. 33.2 g/dL (32.0-36.0); Mean Corpuscular Volume 84.5 fL (80.0-100.0); Monocytes # (auto) 0.5 10 ^3/uL (0-1.3); Monocytes % (auto) 6.1 % (0.0-12.0); Neutrophils # (auto) 6.7 10 ^3/uL (1.6-8.6); Neutrophils % (auto) 76.3 % (37.0-80.0); Red Blood Cells 3.68 10^6/uL (4.0-5.20); White Blood Cell 8.8 10^3/uL (4.4-10.8)
[2022-09-08 06:17] LABS: BUN/Creatinine Ratio 9.7; Calcium 8.8 mg/dL (8.5-10.1); Potassium 3.8 mmol/L (3.5-5.1)
[2022-09-08] MEDS: ACCU-CHEK COMFORT CURVE STRIP VI SCH ×4 (06:49→22:56)
[2022-09-08] MEDS: InsuLIN REG 1unit/0.01ml Soln (100units/ml) SC SCH ×4 (06:52→22:56)
[2022-09-08] MEDS: cefTRIAXone 1GM/50ML D5W 50 ML IV SCH (09:37)
[2022-09-08] MEDS: ENOXAPARIN SOD 30 MG/0.3 ML SYRINGE SC SCH (09:53)
[2022-09-08] MEDS: LOSARTAN POTASSIUM 25 MG TAB PO SCH (09:53)
[2022-09-08] MEDS: PANTOPRAZOLE 40 MG TAB PO SCH (09:53)
[2022-09-08] MEDS: ISOSORBIDE MONONITRATE ER 60 MG TAB PO SCH (09:54)
[2022-09-08] MEDS: ATORVASTATIN 20 MG TAB PO SCH (22:00)
[2022-09-09] VITALS (7 sets, daily range): BP systolic 108–133; BP diastolic 42–57
[2022-09-09] MEDS: ACCU-CHEK COMFORT CURVE STRIP VI SCH ×4 (06:25→21:37)
[2022-09-09] MEDS: InsuLIN REG 1unit/0.01ml Soln (100units/ml) SC SCH ×4 (06:26→21:37)
[2022-09-09] MEDS: cefTRIAXone 1GM/50ML D5W 50 ML IV SCH (09:29)
[2022-09-09] MEDS: LOSARTAN POTASSIUM 25 MG TAB PO SCH (10:05)
[2022-09-09] MEDS: ENOXAPARIN SOD 30 MG/0.3 ML SYRINGE SC SCH (10:06)
[2022-09-09] MEDS: ISOSORBIDE MONONITRATE ER 60 MG TAB PO SCH (10:06)
[2022-09-09] MEDS: PANTOPRAZOLE 40 MG TAB PO SCH (10:06)
[2022-09-09] MEDS: ATORVASTATIN 20 MG TAB PO SCH (21:38)
[2022-09-10 05:00] VITALS: BP 124/54
[2022-09-10] MEDS: InsuLIN REG 1unit/0.01ml Soln (100units/ml) SC SCH ×4 (07:00→21:35)
[2022-09-10] MEDS: ACCU-CHEK COMFORT CURVE STRIP VI SCH ×4 (07:36→21:35)
[2022-09-10 08:00] VITALS: BP 114/40
[2022-09-10 09:00] VITALS: BP 114/40
[2022-09-10] MEDS: cefTRIAXone 1GM/50ML D5W 50 ML IV SCH (09:16)
[2022-09-10] MEDS: ENOXAPARIN SOD 30 MG/0.3 ML SYRINGE SC SCH (09:16)
[2022-09-10] MEDS: ISOSORBIDE MONONITRATE ER 60 MG TAB PO SCH (09:17)
[2022-09-10] MEDS: PANTOPRAZOLE 40 MG TAB PO SCH (09:17)
[2022-09-10] MEDS: LOSARTAN POTASSIUM 25 MG TAB PO SCH (09:18)
[2022-09-10 13:00] VITALS: BP 139/55
[2022-09-10 17:00] VITALS: BP 95/56
[2022-09-10] MEDS: ATORVASTATIN 20 MG TAB PO SCH (21:35)
[2022-09-10 22:19] VITALS: BP 116/50
[2022-09-11 05:02] VITALS: BP 114/45
[2022-09-11] MEDS: ACCU-CHEK COMFORT CURVE STRIP VI SCH ×4 (06:33→21:30)
[2022-09-11] MEDS: InsuLIN REG 1unit/0.01ml Soln (100units/ml) SC SCH ×4 (06:33→21:30)
[2022-09-11 09:00] VITALS: BP 119/55
[2022-09-11] MEDS: cefTRIAXone 1GM/50ML D5W 50 ML IV SCH (09:48)
[2022-09-11] MEDS: LOSARTAN POTASSIUM 25 MG TAB PO SCH (10:21)
[2022-09-11] MEDS: PANTOPRAZOLE 40 MG TAB PO SCH (10:22)
[2022-09-11] MEDS: ENOXAPARIN SOD 30 MG/0.3 ML SYRINGE SC SCH (10:22)
[2022-09-11] MEDS: ISOSORBIDE MONONITRATE ER 60 MG TAB PO SCH (10:22)
[2022-09-11 12:59] VITALS: BP 113/47
[2022-09-11 17:00] VITALS: BP 123/72
[2022-09-11] MEDS: ATORVASTATIN 20 MG TAB PO SCH (21:28)
[2022-09-11 22:00] VITALS: BP 124/47
[2022-09-12 05:00] VITALS: BP 127/55
[2022-09-12] MEDS: ACCU-CHEK COMFORT CURVE STRIP VI SCH ×4 (06:03→21:38)
[2022-09-12] MEDS: InsuLIN REG 1unit/0.01ml Soln (100units/ml) SC SCH ×4 (06:03→21:37)
[2022-09-12] MEDS: cefTRIAXone 1GM/50ML D5W 50 ML IV SCH (08:59)
[2022-09-12 09:00] VITALS: BP 136/67
[2022-09-12] MEDS: ISOSORBIDE MONONITRATE ER 60 MG TAB PO SCH (09:32)
[2022-09-12] MEDS: Juven Fruit Punch Powder PACKET 28.8gm PO SCH (09:32)
[2022-09-12] MEDS: LOSARTAN POTASSIUM 25 MG TAB PO SCH (09:32)
[2022-09-12] MEDS: ENOXAPARIN SOD 30 MG/0.3 ML SYRINGE SC SCH (09:33)
[2022-09-12] MEDS: PANTOPRAZOLE 40 MG TAB PO SCH (09:33)
[2022-09-12 13:00] VITALS: BP 113/62
[2022-09-12 16:00] VITALS: BP 128/51
[2022-09-12] MEDS: ATORVASTATIN 20 MG TAB PO SCH (21:38)
[2022-09-12 22:00] VITALS: BP 112/45
[2022-09-13 05:00] VITALS: BP 138/49
[2022-09-13] MEDS: InsuLIN REG 1unit/0.01ml Soln (100units/ml) SC SCH ×4 (06:43→21:43)
[2022-09-13] MEDS: ACCU-CHEK COMFORT CURVE STRIP VI SCH ×4 (06:44→21:43)
[2022-09-13] MEDS: cefTRIAXone 1GM/50ML D5W 50 ML IV SCH (08:27)
[2022-09-13 09:00] VITALS: BP 114/51
[2022-09-13] MEDS: LOSARTAN POTASSIUM 25 MG TAB PO SCH (09:56)
[2022-09-13] MEDS: ISOSORBIDE MONONITRATE ER 60 MG TAB PO SCH (09:56)
[2022-09-13] MEDS: ENOXAPARIN SOD 30 MG/0.3 ML SYRINGE SC SCH (09:57)
[2022-09-13] MEDS: Juven Fruit Punch Powder PACKET 28.8gm PO SCH (09:57)
[2022-09-13] MEDS: PANTOPRAZOLE 40 MG TAB PO SCH (09:57)
[2022-09-13 13:00] VITALS: BP 124/54
[2022-09-13 17:00] VITALS: BP 126/57
[2022-09-13] MEDS: ATORVASTATIN 20 MG TAB PO SCH (21:37)
[2022-09-13 22:00] VITALS: BP 121/64
[2022-09-14 05:00] VITALS: BP 144/54
[2022-09-14] MEDS: InsuLIN REG 1unit/0.01ml Soln (100units/ml) SC SCH ×2 (06:28→11:03)
[2022-09-14] MEDS: ACCU-CHEK COMFORT CURVE STRIP VI SCH ×2 (06:28→11:02)
[2022-09-14 08:30] VITALS: BP 128/38
[2022-09-14] MEDS: PANTOPRAZOLE 40 MG TAB PO SCH (09:16)
[2022-09-14] MEDS: ENOXAPARIN SOD 30 MG/0.3 ML SYRINGE SC SCH (09:16)
[2022-09-14] MEDS: cefTRIAXone 1GM/50ML D5W 50 ML IV SCH (09:16)
[2022-09-14] MEDS: ISOSORBIDE MONONITRATE ER 60 MG TAB PO SCH (09:17)
[2022-09-14] MEDS: LOSARTAN POTASSIUM 25 MG TAB PO SCH (09:17)
[2022-09-14] MEDS: Juven Fruit Punch Powder PACKET 28.8gm PO SCH (09:18)
[2022-09-14 12:30] VITALS: BP 126/49
== END 2022-09-14 14:30 | disposition home health service (06) | DRG 52 ==
LOC: EDBD 13:36 → ER 13:36 → OVERFLOW 20:54 → WEST WING 09-08 23:16
PROVIDERS: ADMIT Nurse Practitioner; ATTEND Internal Medicine
DX: G93.41 Metabolic encephalopathy (principal); E44.0 Moderate protein-calorie malnutrition; E11.22 Type 2 diabetes mellitus with diabetic chronic kidney disease; S73.006A Unspecified dislocation of unspecified hip, initial encounter; N39.0 Urinary tract infection, site not specified; N18.9 Chronic kidney disease, unspecified; I12.9 Hypertensive chronic kidney disease with stage 1 through stage 4 chronic kidney disease, or unspecified chronic kidney disease; I25.10 Atherosclerotic heart disease of native coronary artery without angina pectoris; Z20.822 Contact with and (suspected) exposure to COVID-19; E78.5 Hyperlipidemia, unspecified; X58.XXXA Exposure to other specified factors, initial encounter; Z91.013 Allergy to seafood; Z79.899 Other long term (current) drug therapy; Z87.442 Personal history of urinary calculi; Z95.1 Presence of aortocoronary bypass graft; Z82.49 Family history of ischemic heart disease and other diseases of the circulatory system; Z83.3 Family history of diabetes mellitus; Z68.22 Body mass index [BMI] 22.0-22.9, adult; Y93.89 Activity, other specified; Y92.89 Other specified places as the place of occurrence of the external cause; Y99.8 Other external cause status
CPT/HCPCS: 36415; 70450; 71045; 80048; 80053; 81001; 82962; 83605; 83735; 85025; 85610; 85730; 87040; 87081; 87426; G0378; J0696; J1815

== ENCOUNTER 2023-05-24 13:47 | Inpatient (IN) | payer MEDICARE, OTHER ==
[~2023-05-24] VITALS: Ht 155.4 cm; Wt 52.8 kg
[~2023-05-24 13:47] MED LIST changes: +LEVO250T58 PO; -LEVO250T69 PO
[2023-05-24] MEDS ORDERED: ONDANSETRON HCL 4 MG/2 ML VIAL IV ONE (14:30)
[2023-05-24] MEDS ORDERED: SODIUM CHLORIDE 0.9% 1,000 ML IV ONE (14:30)
[2023-05-24 15:07] LABS: Basophils # (auto) 0 10 ^3/uL (0-0.2); Basophils % (auto) 0.4 % (0.0-2.0); Eosinophils # (auto) 0.1 10 ^3/uL (0-0.8); Hemoglobin 8.2 g/dL (12.2-16.2); Monocytes # (auto) 0.6 10 ^3/uL (0-1.3); Neutrophils # (auto) 6.2 10 ^3/uL (1.6-8.6); White Blood Cell 8.5 10^3/uL (4.4-10.8)
[2023-05-24 15:09] LABS: Eosinophils % (auto) 1.3 % (0.0-7.0); Hematocrit 26.3 % (36.0-46.0); Lymphocytes # (auto) 1.5 10 ^3/uL (0.4-5.4); Lymphocytes % (auto) 18.1 % (10.0-50.0); Mean Corpuscular Hemoglobin 27.3 pg (28.0-32.0); Mean Corpuscular Hgb Conc. 31.2 g/dL (32.0-36.0); Mean Corpuscular Volume 87.5 fL (80.0-100.0); Monocytes % (auto) 7.2 % (0.0-12.0); Nucleated Red Blood Cells % 0.1 %; Red Blood Cells 3.01 10^6/uL (4.0-5.20); Red Cell Distribution Width 16.9 % (11.8-14.3)
[2023-05-24 15:28] LABS: INR 1.09 (0.9-1.15); Partial Thromboplastin Time 32.3 SEC (24.5-34.5); Prothrombin Time 11.4 sec (9.3-11.8)
[2023-05-24 15:29] LABS: Alanine Aminotransferase 10 U/L (7-40); Albumin 3.6 g/dL (3.2-4.8); Alkaline Phosphatase 130 U/L (46-116); Anion Gap 8 (5-15); Aspartate Aminotransferase 15 U/L (13-40); BUN/Creatinine Ratio 15.4 (10.0-20.0); Blood Alcohol 3.7 mg/dL (<10); Blood Urea Nitrogen 41 mg/dL (9-23); Calcium 8.4 mg/dL (8.7-10.4); Carbon Dioxide 23 mmol/L (20-30); Chloride 114 mmol/L (98-107); Glucose 128 mg/dL (74-106); Magnesium 1.7 mg/dL (1.6-2.6); Potassium 5.1 mmol/L (3.5-5.1); Sodium 145 mmol/L (136-145)
[2023-05-24 15:30] LABS: Bilirubin, Total 0.4 mg/dL (0.2-1.0); Total Protein 6.4 g/dL (5.7-8.2)
[2023-05-24] MEDS ORDERED: cefTRIAXone 1GM/50ML D5W 50 ML IV ONE (17:30)
[2023-05-24] MEDS ORDERED: DEXTROSE (50%) 50ML SYRG IV PRN (17:30)
[2023-05-24] MEDS ORDERED: ACETAMINOPHEN 325 MG TAB PO PRN (17:30)
[2023-05-24] MEDS ORDERED: ONDANSETRON HCL 4 MG/2 ML VIAL IV PRN (17:30)
[2023-05-24] MEDS ORDERED: DOCUSATE SOD 100 MG CAP PO PRN (17:30)
[2023-05-24] MEDS ORDERED: ACETAMINOPHEN/CODEINE#3 (300/30mg) TAB PO PRN (18:30)
[2023-05-25 00:45] VITALS: PULSE 107; RESP 20; O2SAT 95
[2023-05-25] MEDS: ACCU-CHEK COMFORT CURVE STRIP VI SCH ×5 (00:52→21:05)
[2023-05-25] MEDS: InsuLIN REG 1unit/0.01ml Soln (100units/ml) SC SCH ×5 (00:52→21:05)
[2023-05-25] MEDS: FAMOTIDINE 20 MG TAB PO SCH ×2 (00:55→21:05)
[2023-05-25] MEDS: SODIUM BICARBONATE 650 MG TAB PO SCH ×3 (00:55→21:05)
[2023-05-25] MEDS: HYDROcodone-ACET 5/325MG TAB PO PRN (02:36)
[2023-05-25 04:53] LABS: Basophils # (auto) 0 10 ^3/uL (0-0.2); Basophils % (auto) 0.3 % (0.0-2.0); Eosinophils # (auto) 0.1 10 ^3/uL (0-0.8); Eosinophils % (auto) 0.6 % (0.0-7.0); Hematocrit 24.1 % (36.0-46.0); Hemoglobin 7.8 g/dL (12.2-16.2); Lymphocytes # (auto) 1.2 10 ^3/uL (0.4-5.4); Lymphocytes % (auto) 13.5 % (10.0-50.0); Mean Corpuscular Hemoglobin 28.6 pg (28.0-32.0); Mean Corpuscular Hgb Conc. 32.2 g/dL (32.0-36.0); Mean Corpuscular Volume 88.8 fL (80.0-100.0); Monocytes # (auto) 0.6 10 ^3/uL (0-1.3); Monocytes % (auto) 6.3 % (0.0-12.0); Neutrophils # (auto) 7.4 10 ^3/uL (1.6-8.6); Neutrophils % (auto) 79.3 % (37.0-80.0); Nucleated Red Blood Cells % 0.1 %; Red Blood Cells 2.71 10^6/uL (4.0-5.20); White Blood Cell 9.3 10^3/uL (4.4-10.8)
[2023-05-25 05:08] LABS: Alanine Aminotransferase < 9 U/L (7-40); Albumin 3.4 g/dL (3.2-4.8); Alkaline Phosphatase 114 U/L (46-116); Anion Gap 9 (5-15); Aspartate Aminotransferase 12 U/L (13-40); Bilirubin, Total 0.3 mg/dL (0.2-1.0); Blood Urea Nitrogen 36 mg/dL (9-23); Calcium 8.3 mg/dL (8.7-10.4); Carbon Dioxide 20 mmol/L (20-30); Chloride 117 mmol/L (98-107); Glucose 116 mg/dL (74-106); Potassium 4.8 mmol/L (3.5-5.1); Sodium 146 mmol/L (136-145); Total Protein 6.1 g/dL (5.7-8.2)
[2023-05-25] MEDS: SOD CHL 0.45% 1,000 ML IV SCH ×3 (06:50→20:51)
[2023-05-25] MEDS ORDERED: cefTRIAXone 1GM/50ML D5W 50 ML IV SCH (09:00)
[2023-05-25] MEDS: ISOSORBIDE MONONITRATE ER 60 MG TAB PO SCH (11:59)
[2023-05-25] MEDS: ATORVASTATIN 20 MG TAB PO SCH (12:00)
[2023-05-25 14:55] VITALS: BP 108/46; PULSE 85; RESP 16; TEMP 97.7; O2SAT 96
[2023-05-25 22:00] VITALS: BP 112/65; PULSE 76; RESP 19; TEMP 97.6; O2SAT 94
[2023-05-26 05:00] VITALS: BP 104/53; PULSE 91; RESP 16; TEMP 98.5; O2SAT 93
[2023-05-26] MEDS: InsuLIN REG 1unit/0.01ml Soln (100units/ml) SC SCH ×4 (06:38→21:06)
[2023-05-26] MEDS: ACCU-CHEK COMFORT CURVE STRIP VI SCH ×4 (06:38→21:02)
[2023-05-26 08:00] VITALS: RESP 16
[2023-05-26 08:37] LABS: Basophils # (auto) 0 10 ^3/uL (0-0.2); Basophils % (auto) 0.4 % (0.0-2.0); Eosinophils # (auto) 0.1 10 ^3/uL (0-0.8); Eosinophils % (auto) 1.4 % (0.0-7.0); Hematocrit 25.1 % (36.0-46.0); Hemoglobin 7.6 g/dL (12.2-16.2); Lymphocytes # (auto) 1.8 10 ^3/uL (0.4-5.4); Lymphocytes % (auto) 18.5 % (10.0-50.0); Mean Corpuscular Hemoglobin 27.9 pg (28.0-32.0); Mean Corpuscular Hgb Conc. 30.5 g/dL (32.0-36.0); Mean Corpuscular Volume 91.6 fL (80.0-100.0); Monocytes # (auto) 0.6 10 ^3/uL (0-1.3); Monocytes % (auto) 6.3 % (0.0-12.0); Neutrophils # (auto) 7.2 10 ^3/uL (1.6-8.6); Neutrophils % (auto) 73.4 % (37.0-80.0); Red Blood Cells 2.73 10^6/uL (4.0-5.20); Red Cell Distribution Width 17.4 % (11.8-14.3); White Blood Cell 9.8 10^3/uL (4.4-10.8)
[2023-05-26 08:39] VITALS: BP 135/68; PULSE 104; RESP 16; TEMP 97.6; O2SAT 98
[2023-05-26 08:46] LABS: Chloride 117 mmol/L (98-107); Potassium 5.5 mmol/L (3.5-5.1); Sodium 148 mmol/L (136-145)
[2023-05-26 08:47] LABS: Anion Gap 11 (5-15); Carbon Dioxide 20 mmol/L (20-30)
[2023-05-26 08:48] LABS: Calcium 8.5 mg/dL (8.5-10.1)
[2023-05-26 08:52] LABS: Glucose 82 mg/dL (74-106)
[2023-05-26 08:53] LABS: BUN/Creatinine Ratio 14.2 (10.0-20.0); Blood Urea Nitrogen 38 mg/dL (9-23)
[2023-05-26] MEDS: ATORVASTATIN 20 MG TAB PO SCH (09:30)
[2023-05-26] MEDS: SODIUM BICARBONATE 650 MG TAB PO SCH ×2 (09:30→21:02)
[2023-05-26] MEDS: SOD CHL 0.45% 1,000 ML IV SCH ×2 (09:31→21:10)
[2023-05-26] MEDS: ISOSORBIDE MONONITRATE ER 60 MG TAB PO SCH (09:31)
[2023-05-26] MEDS: ERTAPENEM SOD INJ 0.5 GM in SODIUM CHL 0.9% 50 ML IV SCH (10:00)
[2023-05-26] MEDS ORDERED: SODIUM ZIRCONIUM CYCL 10 GM PAK PO ONE (11:45)
[2023-05-26 13:10] VITALS: BP 101/50; PULSE 74; RESP 16; TEMP 98.4; O2SAT 100
[2023-05-26 17:23] VITALS: BP 145/80; PULSE 76; RESP 18; TEMP 98.4; O2SAT 98
[2023-05-26] MEDS: FAMOTIDINE 20 MG TAB PO SCH (21:02)
[2023-05-26 22:00] VITALS: BP 123/48; PULSE 89; RESP 24; TEMP 98.6; O2SAT 94
[2023-05-27] VITALS (7 sets, daily range): BP systolic 115–156; BP diastolic 45–63; PULSE 76–89; RESP 16–18; TEMP 97.9–98.4; O2SAT 94–100
[2023-05-27] MEDS: InsuLIN REG 1unit/0.01ml Soln (100units/ml) SC SCH ×4 (06:15→22:00)
[2023-05-27] MEDS: ACCU-CHEK COMFORT CURVE STRIP VI SCH ×4 (06:15→22:14)
[2023-05-27 07:29] LABS: Basophils # (auto) 0 10 ^3/uL (0-0.2); Basophils % (auto) 0.5 % (0.0-2.0); Eosinophils # (auto) 0.1 10 ^3/uL (0-0.8); Eosinophils % (auto) 1.6 % (0.0-7.0); Hematocrit 25.3 % (36.0-46.0); Hemoglobin 7.9 g/dL (12.2-16.2); Lymphocytes # (auto) 1.8 10 ^3/uL (0.4-5.4); Lymphocytes % (auto) 22.8 % (10.0-50.0); Mean Corpuscular Hemoglobin 27.9 pg (28.0-32.0); Mean Corpuscular Hgb Conc. 31.3 g/dL (32.0-36.0); Mean Corpuscular Volume 89.3 fL (80.0-100.0); Monocytes # (auto) 0.6 10 ^3/uL (0-1.3); Monocytes % (auto) 7.6 % (0.0-12.0); Neutrophils # (auto) 5.4 10 ^3/uL (1.6-8.6); Neutrophils % (auto) 67.5 % (37.0-80.0); Red Blood Cells 2.84 10^6/uL (4.0-5.20); Red Cell Distribution Width 16.7 % (11.8-14.3); White Blood Cell 8.1 10^3/uL (4.4-10.8)
[2023-05-27 07:46] LABS: Anion Gap 8 (5-15); Carbon Dioxide 22 mmol/L (20-30); Chloride 114 mmol/L (98-107); Sodium 144 mmol/L (136-145)
[2023-05-27 07:48] LABS: Calcium 8.3 mg/dL (8.5-10.1)
[2023-05-27 07:51] LABS: Glucose 127 mg/dL (74-106)
[2023-05-27 07:52] LABS: BUN/Creatinine Ratio 15.4 (10.0-20.0); Blood Urea Nitrogen 39 mg/dL (9-23)
[2023-05-27] MEDS: ISOSORBIDE MONONITRATE ER 60 MG TAB PO SCH (10:00)
[2023-05-27 11:53] LABS: Urine Bacteria NONE SEEN /hpf (None Seen); Urine Blood 3+ /uL (Negative); Urine Clarity HAZY (Clear); Urine Color Yellow (Yellow); Urine Protein, UAD 1+ (Negative); Urine Specific Gravity 1.013 (1.001-1.035); Urine Urobilinogen Normal (Negative); Urine WBC 645 /hpf (0 - 5)
[2023-05-27] MEDS: ATORVASTATIN 20 MG TAB PO SCH (11:57)
[2023-05-27] MEDS: SODIUM BICARBONATE 650 MG TAB PO SCH ×2 (11:57→22:14)
[2023-05-27] MEDS: ERTAPENEM SOD INJ 0.5 GM in SODIUM CHL 0.9% 50 ML IV SCH (11:58)
[2023-05-27] MEDS: SOD CHL 0.45% 1,000 ML IV SCH ×2 (12:10→22:15)
[2023-05-27] MEDS: FAMOTIDINE 20 MG TAB PO SCH (22:14)
[2023-05-28] VITALS (7 sets, daily range): BP systolic 108–134; BP diastolic 0–85; PULSE 64–86; RESP 14–16; TEMP 36.8; O2SAT 93–97
[2023-05-28] MEDS: InsuLIN REG 1unit/0.01ml Soln (100units/ml) SC SCH ×4 (06:10→21:52)
[2023-05-28] MEDS: ACCU-CHEK COMFORT CURVE STRIP VI SCH ×4 (06:10→21:52)
[2023-05-28 06:41] LABS: Basophils # (auto) 0 10 ^3/uL (0-0.2); Basophils % (auto) 0.3 % (0.0-2.0); Eosinophils # (auto) 0.2 10 ^3/uL (0-0.8); Hemoglobin 8.1 g/dL (12.2-16.2); White Blood Cell 8.7 10^3/uL (4.4-10.8)
[2023-05-28 06:44] LABS: Anion Gap 7 (5-15); Carbon Dioxide 22 mmol/L (20-30); Chloride 112 mmol/L (98-107); Eosinophils % (auto) 2.8 % (0.0-7.0); Hematocrit 25.2 % (36.0-46.0); Lymphocytes # (auto) 2.1 10 ^3/uL (0.4-5.4); Lymphocytes % (auto) 24.5 % (10.0-50.0); Mean Corpuscular Hemoglobin 28.1 pg (28.0-32.0); Mean Corpuscular Hgb Conc. 32.1 g/dL (32.0-36.0); Mean Corpuscular Volume 87.4 fL (80.0-100.0); Monocytes # (auto) 0.7 10 ^3/uL (0-1.3); Monocytes % (auto) 7.7 % (0.0-12.0); Neutrophils # (auto) 5.6 10 ^3/uL (1.6-8.6); Neutrophils % (auto) 64.7 % (37.0-80.0); Red Blood Cells 2.89 10^6/uL (4.0-5.20); Red Cell Distribution Width 16.1 % (11.8-14.3); Sodium 141 mmol/L (136-145)
[2023-05-28 06:46] LABS: Calcium 8.2 mg/dL (8.5-10.1)
[2023-05-28 06:50] LABS: BUN/Creatinine Ratio 16.9 (10.0-20.0); Blood Urea Nitrogen 36 mg/dL (9-23); Glucose 99 mg/dL (74-106)
[2023-05-28] MEDS: ATORVASTATIN 20 MG TAB PO SCH (09:50)
[2023-05-28] MEDS: ERTAPENEM SOD INJ 0.5 GM in SODIUM CHL 0.9% 50 ML IV SCH (09:50)
[2023-05-28] MEDS: ISOSORBIDE MONONITRATE ER 60 MG TAB PO SCH (09:51)
[2023-05-28] MEDS: SODIUM BICARBONATE 650 MG TAB PO SCH ×2 (09:51→21:45)
[2023-05-28] MEDS: HYDROcodone-ACET 5/325MG TAB PO PRN (09:57)
[2023-05-28] MEDS: SOD CHL 0.45% 1,000 ML IV SCH (15:19)
[2023-05-28] MEDS: FAMOTIDINE 20 MG TAB PO SCH (21:45)
[2023-05-29] MEDS: HYDROcodone-ACET 5/325MG TAB PO PRN (03:05)
[2023-05-29] MEDS: SOD CHL 0.45% 1,000 ML IV SCH (04:10)
[2023-05-29 05:00] VITALS: BP 130/50; PULSE 79; RESP 20; TEMP 98.6; O2SAT 98
[2023-05-29] MEDS: ACCU-CHEK COMFORT CURVE STRIP VI SCH (06:08)
[2023-05-29] MEDS: InsuLIN REG 1unit/0.01ml Soln (100units/ml) SC SCH (06:08)
[2023-05-29 08:00] VITALS: PULSE 76; RESP 18; O2SAT 96
[2023-05-29 09:00] VITALS: BP 132/57; PULSE 76; RESP 18; TEMP 97.6; O2SAT 96
== END 2023-05-29 14:52 | disposition home health service (06) | DRG 52 ==
LOC: ER 13:47 → EDBD 13:47 → WEST WING 17:28 → OVERFLOW 17:28 → TELE-E-ADS 05-25 14:29 → WEST WING 05-25 17:50
PROVIDERS: ADMIT Nurse Practitioner Family; ATTEND Nurse Practitioner Acute Care
DX: G93.41 Metabolic encephalopathy (principal); N17.9 Acute kidney failure, unspecified; N13.6 Pyonephrosis; S32.9XXA Fracture of unspecified parts of lumbosacral spine and pelvis, initial encounter for closed fracture; N18.4 Chronic kidney disease, stage 4 (severe); E11.22 Type 2 diabetes mellitus with diabetic chronic kidney disease; M19.90 Unspecified osteoarthritis, unspecified site; I25.10 Atherosclerotic heart disease of native coronary artery without angina pectoris; I12.9 Hypertensive chronic kidney disease with stage 1 through stage 4 chronic kidney disease, or unspecified chronic kidney disease; K21.9 Gastro-esophageal reflux disease without esophagitis; Z82.49 Family history of ischemic heart disease and other diseases of the circulatory system; Z83.3 Family history of diabetes mellitus; Z86.73 Personal history of transient ischemic attack (TIA), and cerebral infarction without residual deficits; Z87.440 Personal history of urinary (tract) infections; Z88.0 Allergy status to penicillin; Z95.1 Presence of aortocoronary bypass graft; R31.9 Hematuria, unspecified; W18.39XA Other fall on same level, initial encounter; Y93.89 Activity, other specified; Y92.89 Other specified places as the place of occurrence of the external cause; Y99.8 Other external cause status
CPT/HCPCS: 36415; 70450; 71045; 72170; 74176; 76775; 80048; 80053; 80320; 81001; 82962; 83605; 83735; 83880; 84443; 84484; 85025; 85610; 85730; 87040; 87081; 87086; 97110; 97116; 97163; G0378; J0696; J1335; J2405